=== PATIENT | female | born 1995 | race Caucasian/White ===

== ENCOUNTER 2017-12-24 22:30 | Emergency (ER) | payer BC, SELFPAY ==
[2017-12-24 22:31] VITALS: BP 145/79; PULSE 104; RESP 15; TEMP 36.7; BMI 40.6
--- NOTE | 2017-12-24 22:57 | ED.VIS.GEN ---
History of Present Illness Chief Complaint: General Illness Informant: Patient Onset: Days - 2 Context: Gradual Onset Timing: Continuous Quality: n/v/d, headache Location: bifrontal headache w/ radiation into base of head occipital region Current Severity: Mild Maximum Severity: Mild Worsened by: light/sound Relieved by: nothing despite trying tylenol several times today Associated Symptoms: 25 wks. no abd pain, vag d/c or leaking. Narrative: No fevers. Started with vomiting and diarrhea, really lightheaded and malaised on occasion. No syncope. Is feeling the baby move. Her mid chest is a little sore, that started after vomiting and is worse when she does vomit. States she has been having a little bit of a headache that started later as well, and feels like it is going into a migraine, the symptoms and location noted above are typical of her migraine headaches. Prior similar symptoms: Yes - Past Medical History (1) Mild intermittent asthma Status: Chronic Past Medical History - Allergies and Home Meds Allergies/Adverse Reactions: Allergies No Known Allergies Allergy (Verified 12/24/17 22:35) Home Medications: Home Medications Medication Instructions Recorded Metoclopramide [Reglan] 10 mg PO Q6H PRN #15 tab 12/24/17 Multivitamin Tablet 12/24/17 Primary Care Physician: Norma Logan MD [CONSULTING TELERADIOLOGY] - Surgical History: myringotomy Smoking Status: Current every day smoker Drugs: None Review of Systems All systems negative except as indicated General: Reports: Malaise Eyes: Denies: Diplopia ENT: Reports: - - ears ringing off and on. Denies: Bilateral ear pain, Rhinorrhea, Sore throat Cardiovascular: Reports: Chest pain - worse w/ movement and vomiting Respiratory: Denies: Dyspnea, Cough Gastrointestinal: Reports: Nausea, Vomiting, Diarrhea. Denies: Abdominal pain, Melena, Hematochezia Genitourinary: Reports: Frequency - since . Denies: Dysuria Musculoskeletal: Reports: Extremity Pain - R hip/groin x 1-2 weeks -- sore. Denies: Myalgias, Neck pain, Back pain Skin: Denies: Rash Neurological: Reports: Headache. Denies: Weakness, Numbness Physical Exam Vital Signs/Narrative: Vital Signs Temp Pulse Resp BP 12/24/17 22:31 98.0 F 104 H 15 145/79 H Inital Vital Signs reviewed: Yes General: Well nourished, Well developed, Obese Head: Normocephalic, Atraumatic Eyes: Perrl, EOMI ENT: Moist mucous membranes, No rhinorrhea, TM's clear. Negative for: Nasal congestion, Sinus tenderness Neck: Supple, Nontender, No lymphadenopathy Cardiovascular: Regular rate, Regular rhythm, No murmurs, Tachycardia - mild Respiratory: No distress, CTA bilaterally, Chest nontender Abdomen: Soft, Nontender, Nondistended, Normal bowel sounds Back: Nontender, Normal Inspection Extremities: Nontender, No edema, - - no right inguinal LAD or tenderness to palp. painless hip joint PROM. Skin: Normal color, No rash Neurological: Alert, Oriented x3, Cranial nerves II-XII grossly intact, Normal Strength, Normal Sensation, Normal Gait Psychological: Normal affect Diagnostic/Tx/Re-eval - Medical Decision Making heart tones measured at 144, well within normal limits. She was treated with a liter of IV fluids, Reglan 10 mg. On reevaluation, she states she feels much better, I cannot remember the last time I did not feel nauseated. She is comfortable driving home, she has a short distance to go, she is keenly alert and able to ambulate without difficulty. I suspect this is a viral syndrome. Will prescribe her some Reglan to use as needed, which is class B in . Also, she is in agreement that her right hip pain is likely related to her and stretching of her uterus. Advised to use measures of supportive care for that including Tylenol as needed. ED Disposition - Plan for ED Patient: Disposition: Home or Assisted Living Chief Complaint: General Illness Diagnosis: Viral gastroenteritis, related hip pain in second trimester, antepartum, Migraine Instructions: ED Headache Migraine, ED Gastroenteritis Viral Prescriptions: Metoclopramide [Reglan] 10 mg PO Q6H PRN #15 tab PRN Reason: Nausea Referrals: Norma Logan MD [CONSULTING TELERADIOLOGY] - 3-5 Days if not improving
[2017-12-24] MEDS: 0.9% Normal Saline 1,000 ML 999 ML IV (23:06)
[2017-12-24] MEDS: Metoclopramide 10 MG/2 ML Vial IV (23:07)
[2017-12-25 01:05] VITALS: BP 117/91; PULSE 85; RESP 17; O2SAT 97
--- NOTE | 2017-12-25 01:05 | ED.RN ---
IV DC'ED, CATHETER INTACT, SMALL GAUZE DRESSING PLACED. DISCHARGE INSTRUCTIONS GIVEN TO AND REVIEWED WITH PATIENT, PATIENT DENIES QUESTIONS OR CONCERNS AND VOICES UNDERSTANDING OF DISCHARGE INSTRUCTIONS. PT AMBULATES OUT OF ROOM WITHOUT DIFFICULTY.
== END 2017-12-25 01:05 | disposition home or self-care (01) ==
PROVIDERS: Emergency Provider Emergency Medicine
DX: O26.893 Other specified pregnancy related conditions, third trimester (principal); A08.4 Viral intestinal infection, unspecified; G43.909 Migraine, unspecified, not intractable, without status migrainosus; O99.333 Smoking (tobacco) complicating pregnancy, third trimester; Z3A.25 25 weeks gestation of pregnancy
CPT/HCPCS: 99284

== ENCOUNTER 2018-03-10 13:05 | Outpatient (CLI) | payer BC, SELFPAY ==
[2018-03-10 13:48] VITALS: BMI 42.7
[2018-03-10 13:58] LABS: ROM Internal Control Test YES-OK TO RESULT pt. (Internal QC); ROM Patient Test Negative (Negative)
--- NOTE | 2018-03-10 14:21 | OB.TRI.NOTE ---
History of Present Illness Date of Service: 03/10/18 Was patient seen by the physician?: Yes Reason For Visit: R/O SROM Date of Service: 03/10/18 Final JANET: 04/09/18 Final JANET Source: US <20 weeks Gestational age: 35 Weeks and 5 Days History of Present Illness: 22-year-old 4 para 1 female presents at 35-3/7 weeks gestation today complaining of vaginal bleeding at home. Patient states when she went to the bathroom it was bright red blood running down her leg. She denies any regular contractions. She states she has not felt well the last few days. She has had nonspecific headache, malaise like it might just be related symptoms. She denies any fevers or chills. She had some loose stools the last couple of days but not today. She denies any rectal bleeding or diarrhea. Denies any nausea or vomiting. She has some bleeding early in the but nothing in the last couple months. Allergies No Known Allergies Allergy (Verified 12/24/17 22:35) Physical Exam General: Alert, Cooperative, No apparent distress Abdomen: Soft, Non Tender, Gravid, Obese, Appropriate for Gestational Age Extremities:: No edema CAR SALES REPRESENTATIVE: Normal external genitalia - Sterile speculum exam was done. There is physiological white mucus discharge in the vault. Cervix is closed. There is no blood in the vaginal vault or vaginal area. Estimated gestational size: Appropriate for gestational size Presentation: Unable to assess NST - FHR Rate Baby A Baseline: 130 bpm Variability:: Moderate, Marked Decelerations:: None NST Reactive:: Yes, Appropriate for gestational age FHR Category:: Category I Uterine Activity:: irritability Impression/Plan 22-year-old 4 para 1 at 35-3/7 weeks gestation with plain vaginal bleeding. High , maternal obesity, history of previous section. There is no evidence of vaginal bleeding on exam. No evidence of labor. Her ROM plus test was negative for rupture of membranes. Plan is for her to follow-up in the office as scheduled or as needed.
== END 2018-03-10 14:10 | disposition home or self-care (01) ==
LOC: WPOUT 13:22 → WP 13:23
PROVIDERS: Visit Provider Obstetrics & Gynecology
DX: O46.93 Antepartum hemorrhage, unspecified, third trimester (principal); O99.213 Obesity complicating pregnancy, third trimester; E66.9 Obesity, unspecified; O34.219 Maternal care for unspecified type scar from previous cesarean delivery; Z3A.35 35 weeks gestation of pregnancy
CPT/HCPCS: 59025; 59050; 84112; 99218; G0378

== ENCOUNTER 2018-04-04 05:00 | Inpatient (IN) | payer BC, SELFPAY ==
[2018-04-04] VITALS (19 sets, daily range): BP systolic 95–142; BP diastolic 6–91; PULSE 88–108; RESP 2–20; TEMP 35.6–36.8; O2SAT 95–100; BMI 39.9
[2018-04-04] MEDS: Lactated Ringers 1,000 ML 150 ML IV (05:40)
[2018-04-04 06:21] LABS: Red Blood Count 3.82 M/mm3 (4.2-5.4); White Blood Count 13.8 K/mm3 (4.4-11.0)
[2018-04-04 06:22] LABS: Absolute Lymphocyte Count 4.13 X10^3/ul (0.83-4.51); Absolute Neutrophil Count 8.3 X10^3/uL (2.0-7.7); Basophil# 0.02 X10^3/uL; Basophil% 0.1 % (0-1); Eosinophil# 0.19 X10^3/uL; Eosinophils% 1.4 % (0-5); Hematocrit 35.6 % (37-47); Hemoglobin 12.2 g/dl (12.0-15.0); Lymphocyte # 4.13 X10^3/ul (4.0); Lymphocyte % 29.9 % (19-41); Mean Corp Hgb Conc 34.3 g/gl (32-36); Mean Corpuscular Hgb 31.9 pg (27.0-32.0); Mean Corpuscular Volume 93.2 fL (81-99); Mean Platelet Vol. 10.2 fl (6.2-12.0); Monocyte# 1.12 X10^3/uL; Monocyte% 8.1 % (0-10); Neutrophil % 60.1 % (47-70); POSITIVE COUNT NO; POSITIVE DIFFERENTIAL NO; POSITIVE MORPHOLOGY NO; Platelet Count 333 K/mm3 (150-450); RBC Distribution Width CV 13.1 % (11.6-14.6); RBC Distribution Width SD 42.9 fl (35.1-43.9)
[2018-04-04] MEDS: Lactated Ringers 1,000 ML 999 ML IV (06:44)
[2018-04-04] MEDS: Sodium Citrate/Citric Acid 30 ML UDC PO (07:28)
[2018-04-04] MEDS: Ondansetron 4 MG/2 ML Vial IV (08:10)
[2018-04-04] MEDS: Oxytocin 30 units/NS 500 ml 30 UNITS/500 ML IV.SOLN 167 UNITS IV (08:30)
--- NOTE | 2018-04-04 08:42 | PCM.OB.CSR ---
Delivery Classification: Scheduled Final JANET Source: US <20 weeks Gestational age: 39 Indications for : Repeat Elective Description of Procedure: Surgeon: Dr. Sonya Baldwin Marble Polisher Hand: CHAVA Hayward Procedure performed: Repeat Low transverse section Anesthesia: Spinal Preoperative diagnosis: Term gestation 39weeks gestation for an elective repeat section, Postoperative Diagnosis: same- live male infant Findings: Live male infant born without complication. Methylene blue back filled into bladder- 280cc NS to ensure no bladder injury due to bladder adhesions and excess fluid draining after closure of uterus- no defect in bladder appreciated- smith draining blue tinged urine- and clear prior to that time. EBL: 800 cc Implantable devices: None Operative note: After informed consent was obtained the patient was taken to the operating room she was given spinal anesthesia. He was placed in the supine position. She was then prepped and draped in normal sterile fashion. Once spinal anesthesia was found to be adequate skin incision was made with a scalpel in a Pfannenstiel fashion. It was carried down to the underlying layer of the fascia. Fascia was then incised midline with scapel and extended laterally using curved brito. 2 straight Macon's were placed in the superior aspect of the fascial edge and the rectus muscles were dissected off sharply Attention was then turned to the inferior aspect where again the fascial edge was grasped with 2 straight Darci clamps tented up and the rectus muscle dissected off sharplyl. At this time the rectus muscles were grasped in the midline using 2 Allis clamps and scalpel was used to separate the rectus muscles. Using blunt force the peritoneum was then entered. bladder adhesions noted- taken down with bovie and metzenbaum scissor. At this time the vesicouterine peritoneum was identified. Metzenbaum scissors were used to create a bladder flap and then taken down digitally. Uterine incision was made in a low transverse fashion with the scalpel and then entered bluntly. Gentle opposing traction was placed to extend the uterine incision. The membranes were ruptured large amount amniotic fluid clear. Infant's head was then brought to the uterine incision was delivered atraumatically followed by the rest infant's body. At this time delayed cord clamping was performed mouth nose were suctioned. Infant was then handed to the waiting nursery team. The placenta was then removed with gentle traction. The uterus was removed from the intra-abdominal cavity is wrapped in a moist lap. He was cleared of all clots and debris using a moist lap. Ring clamps were placed on the uterine angles. #1 Vicryl suture was used in a running locked fashion, excellent hemostasis achieved. At this time then the uterus was placed back into abdominal cavity uterine incision was evaluated and noted to be of good hemostasis. gutters were cleared of all clots. Great hemostasis was appreciated at this time the uterine incision was again evaluated good hemostasis was appreciated. There was a large of amount of fluid noted- bladder was draining clear but due to adhesions decision made to back fill the bladder with NS and Methylene blue- bladder evaluated- no defect noted. The peritoneum was grasped with Kellys. Peritoneum was reapproximated using #2 Vicryl suture in a running fashion. The fascia was then reapproximated using #1 PDS in a running fashion. Subcutaneous layer was evaluated and Bovie was used for any small oozing that was noted per #2-0 plain gut suture was then used to reapproximate the subcutaneous layer 4-0 Vicryl on a Timur needle was used to reapproximate the skin in a subcutaneous fashion. Dry sterile dressing was applied. Instrument lap needle count were correct ?2. Anticipated normal postoperative course for this patient. Amniotic Membrane Rupture Type: Spontaneous Amniotic Fluid Description: Clear Placenta Disposition: [facility] Drain: Smith to straight drain Cord Entanglement: None Cord Vessel Description: 3 Vessels Esitmated Blood Loss (ml): 800 Infant Gender: Male (1 minute): 9 (5 minute): 9 Delayed cord clamping: Yes Pre-op Antibiotic Given: Ancef 2 grams IV x1 Pt instructed on risks of surgery: Bleeding, Anesthesia Risks, Infection, Injury to surrounding structure(s) including bowel and bladder Complications: None - Admit VTE Documentation VTE Present on Admission: Yes VTE Mechan Device Prophylaxis: SCD's VTE Pharm Prophylaxis ordered?: Yes
[2018-04-04] MEDS: Lactated Ringers 1,000 ML 100 ML IV ×3 (08:55→22:30)
[2018-04-04] MEDS: Ketorolac 30 MG/ML Syringe IV ×2 (14:35→21:13)
[2018-04-05] VITALS (7 sets, daily range): BP systolic 108–123; BP diastolic 51–63; PULSE 87–101; RESP 16–18; TEMP 36.2–36.5; O2SAT 95–99
[2018-04-05] MEDS: Ketorolac 30 MG/ML Syringe IV ×4 (03:18→21:25)
[2018-04-05 05:29] LABS: Hematocrit 30.2 % (37-47); Mean Corp Hgb Conc 33.1 g/gl (32-36); Mean Corpuscular Hgb 31.5 pg (27.0-32.0); Mean Corpuscular Volume 95.3 fL (81-99); Mean Platelet Vol. 9.8 fl (6.2-12.0); Platelet Count 293 K/mm3 (150-450); RBC Distribution Width SD 43.4 fl (35.1-43.9); Red Blood Count 3.17 M/mm3 (4.2-5.4); White Blood Count 13.8 K/mm3 (4.4-11.0)
[2018-04-05 05:30] LABS: Scan Indicated on CBC? Y/N NO
[2018-04-05] MEDS: Enoxaparin 40 MG/0.4 ML Syringe SC (05:55)
--- NOTE | 2018-04-05 08:07 | PCM.DCCSEC ---
Discharge Diet: No Restrictions Discharge Activity: Return to Normal Activity, May Not Drive - for 2 weeks, May not drive while taking narcotic pain medications., May Shower, May Take a Tub Bath - in 7 days. May resume sexual activity in: 4-6 weeks Lifting Restrictions: 20 pounds Additional Activity Instructions:: Nothing in the vagina for 4-6 weeks. You may return to work/school in 6 weeks. Call your doctor if your incision/area has: Continuous Slow Oozing, Sudden Increased Bleeding, Increased Pain/ Swelling, Increased Redness, Foul Smelling Discharge Call your doctor if you observe: Fever of 101 or Higher, Using more than one pad per hour - for 2 hours Suture Line Care: Avoid Pulling/Pushing, Avoid Pinching/Bending Cleanse incision/area with: Keep Dressing Clean & Dry Additional Instructions: If you experience any of the following, contact your healthcare provider. Bleeding that soaks a pad every hour for 2 hours Fever 100.4 or higher Unrelieved incision or abdominal pain Swelling, redness, discharge or bleeding from your incision or episiotomy site Your incision begins to separate Problems urinating (including inability to urinate or burning while urinating). Visual changes Severe headache Flu-like symptoms Pain or redness in one of both of your breasts Pain, warmth, tenderness or swelling in your legs, especially the calf area Frequent nausea and vomiting Symptoms of depression or anxiety If you experience any of the following, call 911 or go to the nearest Emergency Room. Chest pain Problems breathing Seizure activity Partial or complete paralysis of a body part, slurred speech, weakness or drooping of the face, or a sudden inability to walk or hold your balance Allergies/Adverse Reactions: Allergies No Known Allergies Allergy (Verified 04/04/18 05:17) Medications to take at Discharge Multivitamin Tablet 1 tab PO DAILY 12/24/17 Acetaminophen [Tylenol Extra Strength] 500 mg PO Q6H PRN PRN 03/10/18 Ibuprofen [Motrin] 800 mg PO Q8H PRN PRN #30 tab 04/05/18 Oxycodone HCl/Acetaminophen [Percocet 5/325] 1 tablet PO Q6H PRN PRN 7 Days #20 tablet 04/05/18 Senna/Docusate Sodium [Senokot-S] 1 - 2 tab PO DAILY PRN #20 tab 04/05/18 Sertraline HCl [Zoloft] 50 mg PO DAILY #30 tab 04/05/18 SimETHICONE [Mylicon] 80 mg PO PCHS PRN #30 tab 04/05/18 The following prescriptions were given: Oxycodone HCl/Acetaminophen [Percocet 5/325] 1 tablet PO Q6H PRN PRN 7 Days #20 tablet PRN Reason: Pain Ibuprofen [Motrin] 800 mg PO Q8H PRN PRN #30 tab PRN Reason: Pain Senna/Docusate Sodium [Senokot-S] 1 - 2 tab PO DAILY PRN #20 tab PRN Reason: Constipation Sertraline HCl [Zoloft] 50 mg PO DAILY #30 tab SimETHICONE [Mylicon] 80 mg PO PCHS PRN #30 tab PRN Reason: Indigestion/stomach pain Follow-Up: Call to make an appointment with your doctor for an incision check in 1-2 weeks. You will also need a 6 week post- follow up appointment. Test results from this visit will be discussed in further detail at your follow-up appointment, if applicable. Please Follow Up With: Sonya Baldwin MD - Call to make an appointment for an incision check in 1-2 [phone] When: You will need a post- check in 6 weeks. Primary Care Physician: Care Physician,No Primary [Primary Care Provider] -
--- NOTE | 2018-04-05 08:08 | PCM.PN.OB ---
Subjective: pt seen at bedside, doing well. pt reports good pain control. lochia mild. pt reports passing flatus, denies N/V. pt requesting restart of zoloft- emotional this morning. Smith draining. - Physical Exam General: Alert, Oriented x3 Abdomen: Soft, Non-Distended, - - fundus firm. incison site dry and intact Extremities: No Calf Tenderness Vital Signs Temp Pulse Resp BP Pulse Ox 97.6 F L 98 16 108/51 L 99 04/05/18 03:20 04/05/18 06:00 04/05/18 06:00 04/05/18 03:20 04/05/18 06:00 Oxygen Delivery Method Room Air Weight: 115.6 kg Body Mass Index (BMI) 39.9 Intake and Output for Last 24 Hours 04/03/18 04/04/18 04/05/18 23:59 23:59 23:59 Intake Total 2880 / 2880 2007 / 2007 Output Total 2170 / 2170 1700 / 1700 Balance 710 / 710 308 / 308 Laboratory Tests Past 24 Hrs 04/04/18 04/05/18 05:40 05:15 WBC 13.8 H RBC 3.17 L Hgb 10.0 L Hct 30.2 L MCV 95.3 MCH 31.5 MCHC 33.1 RDW 13.0 RDW Differential 43.4 Plt Count 293 MPV 9.8 Blood Type A POSITIVE Antibody Screen NEGATIVE Medical Necessity - Tobacco Use Smoking Status: Heavy Smoker (>10/day) Assessment/Plan POD#1, doing well routine care dc smith ambulation today pain mgmt
[2018-04-05] MEDS: 0.9% Saline Lock 10 ML Syringe IV ×3 (08:46→21:25)
--- NOTE | 2018-04-05 09:58 | NURSING ---
agree with a.m. assessment, alex bullock
[2018-04-05] MEDS: Ibuprofen 600 MG Tablet PO (13:46)
[2018-04-05] MEDS: Senna/Docusate Sodium 1 Tablet PO (16:59)
[2018-04-05] MEDS: oxyCODONE 5 MG Tablet PO (20:02)
[2018-04-05] MEDS: Sertraline 50 MG Tablet PO (21:25)
[2018-04-06 02:10] VITALS: BP 137/87; PULSE 95; RESP 16; TEMP 36.5; O2SAT 95
[2018-04-06] MEDS: oxyCODONE 5 MG Tablet PO ×2 (02:10→13:52)
[2018-04-06] MEDS: Ketorolac 30 MG/ML Syringe IV (03:27)
[2018-04-06] MEDS: 0.9% Saline Lock 10 ML Syringe IV (03:27)
--- NOTE | 2018-04-06 05:45 | PCM.PN.OB ---
Subjective: pt seen at bedside, reports good pain control. lochia mild. passing flatus. - Physical Exam General: Alert, Oriented x3 Abdomen: Soft, Non Tender, - - fundus firm Extremities: No Calf Tenderness Vital Signs Temp Pulse Resp BP Pulse Ox 97.7 F L 95 16 137/87 H 95 04/06/18 02:10 04/06/18 02:10 04/06/18 02:10 04/06/18 02:10 04/06/18 02:10 Oxygen Delivery Method Room Air Weight: 115.6 kg Body Mass Index (BMI) 39.9 Intake and Output for Last 24 Hours 04/04/18 04/05/18 04/06/18 23:59 23:59 23:59 Intake Total 2880 / 2880 2007 Output Total 2170 / 2170 3650 / 3650 Balance 710 / 710 -1642 / -1642 Medical Necessity - Tobacco Use Smoking Status: Heavy Smoker (>10/day) Assessment/Plan POD#2 doing well routine care pain mgmt ambulation
[2018-04-06] MEDS: Enoxaparin 40 MG/0.4 ML Syringe SC (06:24)
--- NOTE | 2018-04-06 07:22 | PCM.DC.BLA ---
Discharge Summary Date of Admission: 04/04/18 Date of Discharge: 04/06/18 Summary: pt underwent scheduled elective repeat c/s without complication. Pt had normal post op course and was discharged home on POD#2.
[2018-04-06 08:53] VITALS: BP 144/86; PULSE 96; RESP 16; TEMP 37.2; O2SAT 95
[2018-04-06] MEDS: Ibuprofen 600 MG Tablet PO (09:34)
[2018-04-06 13:58] VITALS: BP 131/77; PULSE 87; RESP 16; TEMP 36.6; O2SAT 97
== END 2018-04-06 14:30 | disposition home or self-care (01) | DRG 766 ==
PROVIDERS: Admitting Provider Obstetrics & Gynecology; Visit Provider Obstetrics & Gynecology
PROC: 10D00Z1 Extraction of Products of Conception, Low, Open Approach (ICD-10-PCS; CPT 59514; principal; 2018-04-04 07:15)
DX: O34.211 Maternal care for low transverse scar from previous cesarean delivery (principal); O99.334 Smoking (tobacco) complicating childbirth; F17.210 Nicotine dependence, cigarettes, uncomplicated; O99.344 Other mental disorders complicating childbirth; F32.9 Major depressive disorder, single episode, unspecified; Z37.0 Single live birth; Z3A.39 39 weeks gestation of pregnancy
CPT/HCPCS: 85025; 85027; 86850; 86900; 99218; J7120; A4216; G0378; J2405; Q9968

== ENCOUNTER 2018-05-17 16:55 | Emergency (ER) | payer BC, SELFPAY ==
[2018-05-17 16:56] VITALS: BP 151/71; PULSE 97; RESP 18; TEMP 36.8; O2SAT 98; BMI 36.0
[2018-05-17 17:08] VITALS: BP 145/74; PULSE 86; RESP 16; O2SAT 100
--- NOTE | 2018-05-17 17:20 | ED.DCSUM_ITS ---
- ER Visit Summary Date of Service: 05/17/18 Chief Complaint: [Vaginal bleeding] History of Present Illness: The patient is a 22 F [presents to the emergency department complaint of vaginal bleeding that started around 3 AM. Patient states that she is passing clots and is going through about a pad and a tampon every 45 minutes. Patient states that she is 6 weeks . Patient complains of feeling lightheaded and dizzy. Patient complains of nausea. Patient complains of lower abdominal pain. Patient states that she took an oxycodone this morning that she had leftover but it really did not seem to help her pain. Patient denies urinary symptoms.] Physical Examination: [HEENT-PERRLA, EOMI. Cranial nerves II through XII grossly intact. TMs clear. Mucous membranes moist. No adenopathy. Cardiovascular-regular rate and rhythm without murmur or ectopy Lungs-clear to auscultation, chest wall stable without crepitus or subcu emphysema Abdomen-normoactive bowel sounds, soft. Patient has tenderness to the suprapubic region. There is no rebound, rigidity, or perineal signs. exam-normal external genitalia. On speculum exam there is a small amount of blood in the vaginal vault although patient did have a tampon in prior to exam. Once the blood was cleared from the vaginal vault it was noted that she just had a small amount of blood trickling from the cervical office. The office is closed. No evidence of trauma to the vaginal vault or cervix noted. Extremities-intact ?4, normal range of motion, normal pulses, atraumatic] Test Results: [CBC with differential obtained showed a white count of 8.3, hemoglobin 13.8, hematocrit 42, platelets 356. Orthostatic vital signs were negative. HCG was negative.] Emergency Department Course and Treatment: [Patient received normal saline was medicated with morphine and Zofran for pain.] Treatment Plan: [Patient case was discussed with Dr. Patricia Guy who is on-call for Dr. Logan who asked the patient keep her appointment tomorrow with her HUMAN RESOURCES HR REPRESENTATIVE.] Disposition: [Discharged home in stable condition] Impression: [Vaginal bleeding] This note was generated with [employer] dictation software. It may contain incorrect words, spelling, and punctuation that were not noted in review of the chart prior to signing ED Disposition - Plan for ED Patient: Chief Complaint: Vag Bleeding Referrals: Care Physician,No Primary [Primary Care Provider] -
[2018-05-17 17:51] LABS: Absolute Lymphocyte Count 2.67 X10^3/ul (0.83-4.51); Absolute Neutrophil Count 4.9 X10^3/uL (2.0-7.7); Basophil# 0.02 X10^3/uL; Basophil% 0.2 % (0-1); Eosinophil# 0.22 X10^3/uL; Eosinophils% 2.6 % (0-5); Hematocrit 41.6 % (37-47); Hemoglobin 13.8 g/dl (12.0-15.0); Lymphocyte # 2.67 X10^3/ul (4.0); Lymphocyte % 32.1 % (19-41); Mean Corp Hgb Conc 33.2 g/gl (32-36); Mean Corpuscular Hgb 30.6 pg (27.0-32.0); Mean Corpuscular Volume 92.2 fL (81-99); Mean Platelet Vol. 10.7 fl (6.2-12.0); Monocyte# 0.46 X10^3/uL; Monocyte% 5.5 % (0-10); Neutrophil # 4.93 X10^3/uL (2.7-7.7); Neutrophil % 59.5 % (47-70); Platelet Count 356 K/mm3 (150-450); RBC Distribution Width CV 12.9 % (11.6-14.6); RBC Distribution Width SD 42.3 fl (35.1-43.9); Red Blood Count 4.51 M/mm3 (4.2-5.4); White Blood Count 8.3 K/mm3 (4.4-11.0)
[2018-05-17 17:52] LABS: POSITIVE COUNT NO; POSITIVE DIFFERENTIAL NO; POSITIVE MORPHOLOGY NO
[2018-05-17 18:00] VITALS: BP 111/60; BP 113/60; BP 113/62; PULSE 72; PULSE 78; PULSE 97
[2018-05-17] MEDS: 0.9% Normal Saline 1,000 ML 1000 ML IV (18:04)
[2018-05-17 18:18] LABS: Pregnancy, Serum, hCG Quali. NEGATIVE Negative (0-9 Nonpreg)
[2018-05-17] MEDS: Morphine 4 MG/ML Syringe IV (18:54)
[2018-05-17] MEDS: Ondansetron 4 MG/2 ML Vial IV (18:54)
--- NOTE | 2018-05-17 19:47 | ED.RN ---
olga cox ENERGY RISK MANAGEMENT ANALYST in with Dr. Almazan during pelvic exam
--- NOTE | 2018-05-17 19:54 | ED.DEP ---
ED Disposition - Plan for ED Patient: Chief Complaint: Vag Bleeding Instructions: ED Bleed Irregular Vaginal Prescriptions: Hydrocodone Bitart/Apap 5-325 [[place] 5MG-325MG] 1 tab PO Q4H PRN PRN 2 Days #10 tab PRN Reason: Pain Referrals: Care Physician,No Primary [Primary Care Provider] - Sonya Baldwin MD [STAFF PHYSICIAN] - 1 Day
[2018-05-17 20:01] VITALS: BP 107/60; PULSE 60; RESP 16; O2SAT 97
== END 2018-05-17 20:02 | disposition home or self-care (01) ==
LOC: ED 17:16
PROVIDERS: Emergency Provider Emergency Medicine
DX: O72.1 Other immediate postpartum hemorrhage (principal); Z72.0 Tobacco use
CPT/HCPCS: 84703; 85025; 86850; 86900; 96361; 96374; 96375; 99284; J7030; A4216; J2405

== ENCOUNTER 2018-06-04 08:50 | Observation (INO) | payer BC, SELFPAY ==
[2018-06-04] VITALS (10 sets, daily range): BP systolic 103–146; BP diastolic 50–110; PULSE 79–100; RESP 14–18; TEMP 36.3–37.1; O2SAT 95–100; BMI 36.0
--- NOTE | 2018-06-04 09:07 | CT_ITS ---
STUDY: CT ABDOMEN AND PELVIS WITH CONTRAST REASON FOR EXAM: Female, 22 years old. Abdominal pain, nausea and vomiting for 2 days. RADIATION DOSAGE (If Supplied By Facility): CTDIvol = ( 14.68 ) mGy, DLP = ( 1302.53 ) mGycm TECHNIQUE: Transaxial images were obtained from the dome of the diaphragm to the symphysis pubis without oral contrast. 100CC ml of Isovue 300 contrast was administered. Sagittal and coronal images were reconstructed. Individualized dose optimization techniques were used for this CT. COMPARISON: 07/05/2017. FINDINGS: The visualized lung bases are unremarkable. The visualized portions of the heart are within normal limits. The liver is borderline in size. No focal lesion is seen. Normal gallbladder and extrahepatic biliary system. Normal spleen. Normal pancreas. Normal bilateral adrenal glands. Normal right kidney. Normal left kidney. Normal visualized stomach. The small bowel loops are normal in caliber. There is no evidence of bowel obstruction. There is mild fecal retention. The descending colon is suboptimally distended. There is a tubular thickened structure in the right lower quadrant and upper pelvic lesion with calcification in its proximal aspect which could represent appendicolith. The findings are suspicious for acute appendicitis (Axial images 86-1 01 series 2 and coronal images 58-70 series 601). Normal abdominal aorta. Normal inferior vena cava. Normal retroperitoneum. The urinary bladder is not distended. There is an IUD in place. There is moderate amount of free fluid in the pelvis. There may be a cyst in the left adnexal region measuring about 2.2 cm. There is a very small umbilical hernia containing fat. Normal osseous structures. CT/Abdomen/Pelvis W IV Cont ONLY IMPRESSION: 1. Thickened tubular structure in the right side of the upper pelvis with probable appendicolith as described above suspicious for acute appendicitis. 2. Moderate amount of free fluid in the pelvis. 3. Probable small left adnexal cyst. 4. IUD in place. N.B. : The above information has been verbally conveyed by Chun Rudd MD to Dr. El MD, on 06/04/2018 11:30:43 (ET). Electronically Signed: Chun Rudd MD at 11:23 EDT Tel , Service support ,
--- NOTE | 2018-06-04 09:09 | ED.VIS.GEN ---
History of Present Illness Chief Complaint: Abd Pain Informant: Patient Onset: Yesterday Context: Gradual Onset Timing: Continuous Quality: Pain Location: periumbilical initially, this AM RLQ Current Severity: Severe Maximum Severity: Severe Worsened by: bumps in road en route to ER Relieved by: nothing Associated Symptoms: n/v, dec appetite Narrative: Patient states abdominal pain started last night, followed by nausea, vomiting, now right lower quadrant discomfort. Never had her appendix out. She has had 2 prior C-sections, the last one was about 2 months ago, and she had a left ovarian surgery for a cyst. Normal bowel movement yesterday, normal urination, no radiation into her back, which always hurts. - Past Medical History (1) Mild intermittent asthma Status: Chronic Past Medical History - Allergies and Home Meds Allergies/Adverse Reactions: Allergies No Known Allergies Allergy (Verified 06/04/18 08:54) Primary Care Physician: Care Physician,No Primary [Primary Care Provider] - Surgical History: myringotomy, - - Left ovarian cyst. x2. Smoking Status: Current every day smoker Drugs: None Review of Systems General: Reports: Malaise. Denies: Chills, Fever, Sweats Cardiovascular: Denies: Chest pain, Palpitations Respiratory: Denies: Dyspnea, Cough, Dyspnea on exertion Gastrointestinal: Reports: Abdominal pain, Nausea, Vomiting. Denies: Diarrhea, Melena, Hematochezia Genitourinary: Denies: Dysuria, Hematuria, Frequency Musculoskeletal: Reports: Back pain - chronic. Denies: Neck pain, Swelling, Extremity Pain Skin: Denies: Rash Neurological: Denies: Headache, Weakness, Numbness Psych: Reports: Anxiety. Denies: Depression Allergy: Denies: Swelling of the mouth, Swelling of the tongue Physical Exam Vital Signs/Narrative: Vital Signs Temp Pulse Resp BP Pulse Ox 06/04/18 08:51 98 F 100 18 125/76 H 100 Inital Vital Signs reviewed: Yes General: Well nourished, Well developed, - - tearful, in pain Head: Normocephalic, Atraumatic Eyes: Perrl, EOMI ENT: Moist mucous membranes, No rhinorrhea Neck: Supple, Nontender Cardiovascular: Regular rate, Regular rhythm, No murmurs Respiratory: No distress, CTA bilaterally, Chest nontender Abdomen: Soft, Nondistended, Tender - diffuse RLQ, including McBurney's pt, Guarding - vol, Hyperactive bowel sounds, Obturator sign - unable to complete due to pain -- flexing thigh intensifies pain. not able to perform psoas due to pain., Rovsig's sign. Negative for: Rebound tenderness, Hepatomegaly, Cohn's sign Back: Normal Inspection. Negative for: CVA tenderness Extremities: Nontender, No edema Skin: Normal color, No rash Neurological: Alert, Oriented x3, Cranial nerves II-XII grossly intact, Normal Strength, Normal Sensation, Normal Gait Psychological: Tearful Diagnostic/Tx/Re-eval Impressions Abdomen/Pelvis CT 06/04/18 09:07 IMPRESSION: 1. Thickened tubular structure in the right side of the upper pelvis with probable appendicolith as described above suspicious for acute appendicitis. 2. Moderate amount of free fluid in the pelvis. 3. Probable small left adnexal cyst. 4. IUD [address]. N.B. : The above information has been verbally conveyed by Chun Rudd MD to Dr. El MD, on 06/04/2018 11:30:43 (ET). Electronically Signed: Chun Rudd MD at 11:23 EDT Tel , Service support , 06/04/18 09:07 Abdomen/Pelvis W IV Cont ONLY [CT] Stat Laboratory Results 06/04/18 06/04/18 06/04/18 09:20 09:20 09:20 WBC 16.5 H RBC 4.96 Hgb 15.3 H Hct 45.5 MCV 91.7 MCH 30.8 MCHC 33.6 RDW 13.2 RDW Differential 43.5 Plt Count 354 MPV 10.3 Immature Gran % (Auto) 0.100 Neut % (Auto) 86.1 H Lymph % (Auto) 8.6 L [place] % (Auto) 4.4 Eos % (Auto) 0.7 Baso % (Auto) 0.1 Absolute Neuts (auto) 14.2 H Absolute Lymphs (auto) 1.42 Total Counted Not Reportable Sodium 138 Potassium 3.4 L Chloride 105 Carbon Dioxide 26.0 Anion Gap 7 BUN 8 Creatinine 0.85 Estim Creat Clear Calc 95.54 Est GFR (MDRD) Af Amer 105 Est GFR (MDRD) Non-Af 87 BUN/Creatinine Ratio 9.4 L Glucose 103 Calcium 8.9 Serum , Qual NEGATIVE - Medical Decision Making Initial eval was suspicious for appendicitis. Patient does not have surgical abdomen, is very soft, therefore workup is ordered along with analgesics, antiemetics, and IV fluids. Patient has leukocytosis of 16.5 with strong leftward shift, and CT with IV contrast performed after negative confirms acute appendicitis without rupture, however very dilated thickened appendix over 1 cm. There is free fluid in the pelvis and no free fluid near the appendix. Discussed with surgery Dr. Price. Juan Alberto ordered. ED Disposition - Plan for ED Patient: Disposition: Acute Care Hospital [facility] Chief Complaint: Abd Pain Diagnosis: Acute appendicitis Referrals: Care Physician,No Primary [Primary Care Provider] -
--- NOTE | 2018-06-04 09:13 | ED.DCSUM_ITS ---
History of Present Illness Chief Complaint: Abd Pain Informant: Patient Onset: Yesterday Context: Gradual Onset Timing: Continuous Quality: Pain Location: periumbilical initially, this AM RLQ Current Severity: Severe Maximum Severity: Severe Worsened by: bumps in road en route to ER Relieved by: nothing Associated Symptoms: n/v, dec appetite Narrative: Patient states abdominal pain started last night, followed by nausea, vomiting, now right lower quadrant discomfort. Never had her appendix out. She has had 2 prior C-sections, the last one was about 2 months ago, and she had a left ovarian surgery for a cyst. Normal bowel movement yesterday, normal urination, no radiation into her back, which always hurts. - Past Medical History (1) Mild intermittent asthma Status: Chronic Past Medical History - Allergies and Home Meds Allergies/Adverse Reactions: Allergies No Known Allergies Allergy (Verified 06/04/18 08:54) Primary Care Physician: Care Physician,No Primary [Primary Care Provider] - Surgical History: myringotomy, - - Left ovarian cyst. x2. Smoking Status: Current every day smoker Drugs: None Review of Systems General: Reports: Malaise. Denies: Chills, Fever, Sweats Cardiovascular: Denies: Chest pain, Palpitations Respiratory: Denies: Dyspnea, Cough, Dyspnea on exertion Gastrointestinal: Reports: Abdominal pain, Nausea, Vomiting. Denies: Diarrhea, Melena, Hematochezia Genitourinary: Denies: Dysuria, Hematuria, Frequency Musculoskeletal: Reports: Back pain - chronic. Denies: Neck pain, Swelling, Extremity Pain Skin: Denies: Rash Neurological: Denies: Headache, Weakness, Numbness Psych: Reports: Anxiety. Denies: Depression Allergy: Denies: Swelling of the mouth, Swelling of the tongue Physical Exam Vital Signs/Narrative: Vital Signs Temp Pulse Resp BP Pulse Ox 06/04/18 08:51 98 F 100 18 125/76 H 100 Inital Vital Signs reviewed: Yes General: Well nourished, Well developed, - - tearful, in pain Head: Normocephalic, Atraumatic Eyes: Perrl, EOMI ENT: Moist mucous membranes, No rhinorrhea Neck: Supple, Nontender Cardiovascular: Regular rate, Regular rhythm, No murmurs Respiratory: No distress, CTA bilaterally, Chest nontender Abdomen: Soft, Nondistended, Tender - diffuse RLQ, including McBurney's pt, Gu arding - vol, Hyperactive bowel sounds, Obturator sign - unable to complete due to pain -- flexing thigh intensifies pain. not able to perform psoas due to pain., Rovsig's sign. Negative for: Rebound tenderness, Hepatomegaly, Cohn's sign Back: Normal Inspection. Negative for: CVA tenderness Extremities: Nontender, No edema Skin: Normal color, No rash Neurological: Alert, Oriented x3, Cranial nerves II-XII grossly intact, Normal Strength, Normal Sensation, Normal Gait Psychological: Tearful Diagnostic/Tx/Re-eval Impressions Abdomen/Pelvis CT 06/04/18 09:07 IMPRESSION: 1. Thickened tubular structure in the right side of the upper pelvis with probable appendicolith as described above suspicious for acute appendicitis. 2. Moderate amount of free fluid in the pelvis. 3. Probable small left adnexal cyst. 4. IUD in place. N.B. : The above information has been verbally conveyed by Chun Rudd MD to Dr. El MD, on 06/04/2018 11:30:43 (ET). Electronically Signed: Chun Rudd MD at 11:23 EDT Tel , Service support , 06/04/18 09:07 Abdomen/Pelvis W IV Cont ONLY [CT] Stat Laboratory Results 06/04/18 06/04/18 06/04/18 09:20 09:20 09:20 WBC 16.5 H RBC 4.96 Hgb 15.3 H Hct 45.5 MCV 91.7 MCH 30.8 MCHC 33.6 RDW 13.2 RDW Differential 43.5 Plt Count 354 MPV 10.3 Immature Gran % (Auto) 0.100 Neut % (Auto) 86.1 H Lymph % (Auto) 8.6 L [place] % (Auto) 4.4 Eos % (Auto) 0.7 Baso % (Auto) 0.1 Absolute Neuts (auto) 14.2 H Absolute Lymphs (auto) 1.42 Total Counted Not Reportable Sodium 138 Potassium 3.4 L Chloride 105 Carbon Dioxide 26.0 Anion Gap 7 BUN 8 Creatinine 0.85 Estim Creat Clear Calc 95.54 Est GFR (MDRD) Af Amer 105 Est GFR (MDRD) Non-Af 87 BUN/Creatinine Ratio 9.4 L Glucose 103 Calcium 8.9 Serum , Qual NEGATIVE - Medical Decision Making Initial eval was suspicious for appendicitis. Patient does not have surgical abdomen, is very soft, therefore workup is ordered along with analgesics, antiemetics, and IV fluids. Patient has leukocytosis of 16.5 with strong leftward shift, and CT with IV contrast performed after negative confirms acute appendicitis without rupture, however very dilated thickened appendix over 1 cm. There is free fluid in the pelvis and no free fluid near the appendix. Discussed with surgery Dr. Price. Juan Alberto ordered. ED Disposition - Plan for ED Patient: Disposition: Acute Care Hospital [facility] Chief Complaint: Abd Pain Diagnosis: Acute appendicitis Referrals: Care Physician,No Primary [Primary Care Provider] -
[2018-06-04] MEDS: 0.9% Normal Saline 1,000 ML 1000 ML IV (09:26)
[2018-06-04] MEDS: Morphine 4 MG/ML Syringe IV ×2 (09:26→11:59)
[2018-06-04] MEDS: Ondansetron 4 MG/2 ML Vial IV (09:27)
[2018-06-04 09:29] LABS: Absolute Lymphocyte Count 1.42 X10^3/ul (0.83-4.51); Absolute Neutrophil Count 14.2 X10^3/uL (2.0-7.7); Basophil# 0.02 X10^3/uL; Basophil% 0.1 % (0-1); Eosinophil# 0.12 X10^3/uL; Eosinophils% 0.7 % (0-5); Hematocrit 45.5 % (37-47); Hemoglobin 15.3 g/dl (12.0-15.0); Lymphocyte # 1.42 X10^3/ul (4.0); Lymphocyte % 8.6 % (19-41); Mean Corp Hgb Conc 33.6 g/gl (32-36); Mean Corpuscular Hgb 30.8 pg (27.0-32.0); Mean Corpuscular Volume 91.7 fL (81-99); Mean Platelet Vol. 10.3 fl (6.2-12.0); Monocyte# 0.73 X10^3/uL; Monocyte% 4.4 % (0-10); Neutrophil # 14.23 X10^3/uL (2.7-7.7); Neutrophil % 86.1 % (47-70); Platelet Count 354 K/mm3 (150-450); RBC Distribution Width CV 13.2 % (11.6-14.6); RBC Distribution Width SD 43.5 fl (35.1-43.9); Red Blood Count 4.96 M/mm3 (4.2-5.4); White Blood Count 16.5 K/mm3 (4.4-11.0)
[2018-06-04 09:30] LABS: POSITIVE COUNT NO; POSITIVE DIFFERENTIAL NO; POSITIVE MORPHOLOGY NO
[2018-06-04 09:43] LABS: Anion Gap 7 (5-15); BUN 8 mg/dL (7-18); BUN/Creat Ratio 9.4 RATIO (10-20); Calcium,Total 8.9 mg/dL (8.5-10.1); Chloride 105 mmol/L (98-107); Creatinine, Serum 0.85 mg/dL (0.55-1.02); EST Glomerular Filtration Rate 87 mL/min (>60); Est Glom Filt Rate - Afr Amer 105 mL/min (>60); Estimated Creatinine Clearance 95.54 ml/min; Glucose 103 mg/dL (74-106); Potassium 3.4 mmol/L (3.5-5.1); Sodium Level 138 mmol/L (136-145)
[2018-06-04 09:50] LABS: Pregnancy, Serum, hCG Quali. NEGATIVE Negative (0-9 Nonpreg)
[2018-06-04 11:34] LABS: Bacteria 0 SEEN /hpf (None Seen); Mucous, Urine 0 SEEN /hpf (<or=2+); White Blood Cells 0 SEEN /hpf (0-5)
[2018-06-04 11:37] LABS: Color, Urine Yellow (Yellow); Glucose, Dipstick Normal (Normal); Ketone-Dipstick Negative (Negative); Leukocyte Esterase-Dipstick 25 /ul (Negative); Nitrite-Dipstick Negative (Negative); Occult Blood-Urine 150 /ul (Negative); Protein-Dipstick 15 mg/dl (Negative); Specific Gravity, Urine 1.005 (1.002-1.030); Urine Bilirubin Dipstick Negative (Negative); Urine Clarity Clear (Clear); Urine Urobilinogen Normal (Normal)
[2018-06-04 11:44] LABS: Red Blood Cells-Urine 0-5 SEEN /hpf (0-5); Squamous Epithelial Cells - UA 0-5 SEEN /hpf (5-10)
--- NOTE | 2018-06-04 11:44 | NURSING ---
DR GOMES PAGED AND RETURNED CALL
--- NOTE | 2018-06-04 11:47 | NURSING ---
MED SURG ACUTE APPENDICITIS [facility]
[2018-06-04] MEDS: Piperacil/Tazobactam 3.375 GM/50 ML ML IV ×2 (12:00→18:45)
--- NOTE | 2018-06-04 12:04 | NURSING ---
SURGEON IN ROOM
--- NOTE | 2018-06-04 12:15 | PCM.HP.STD ---
History of Present Illness Date of Admission: 06/04/18 Chief Complaint: Acute appendicitis The patient is a 22 year old F presented to the ER due to right lower quadrant pain. Patient states pain started initially at 7 PM she was able to take 1 over oxycodone from her previously, patient that her pain may be due to her polycystic ovarian disease. She was able to sleep until about 5 AM where the pain was worse 10/10, positive nausea and vomiting. Patient last ate yesterday at 6 PM and only had a little Sprite this morning, she had a bowel movement yesterday a.m. she usually goes about every other day. In the ER patient had a CT abdomen pelvis that showed a thickened appendix consistent with appendicitis and a leukocytosis of 13. Past Medical History Past Medical History (Chronic Problems): Chronic Problems Mild intermittent asthma (Chronic) Allergies No Known Allergies Allergy (Verified 06/04/18 08:54) Home Medications: Ambulatory Orders Medication Instructions Recorded Sertraline HCl [Zoloft] 50 mg PO DAILY #30 tab 04/05/18 Surgical History: myringotomy, - - Left ovarian cyst. x2. 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 Smoking Status: Current every day smoker Drugs: None - *Family History Maternal History Items: No pertinent history Review of Systems Constitutional: Reports: Anorexia HEENT: Denies: Difficulty Swallowing Cardiovascular: Denies: Chest Pain Respiratory: Denies: Shortness of Breath Gastrointestinal: Reports: Abdominal Pain, Nausea, Vomiting Genitourinary: Denies: Dysuria VTE Information - Inpt Only VTE Present on Admission: Yes VTE Mechan Device Prophylaxis: SCD's VTE Pharm Prophylaxis ordered?: No Reason prophylaxis not ordered:: Treatment Not Indicated - Plan for surgery Patient Problems: Active and Suspected Problems Acute appendicitis (Acute) - Physical Exam General: Alert, Oriented x3, Cooperative, No apparent distress Lungs: Normal air movement Cardiovascular: Regular rate, Regular Rhythm Abdomen: Soft, Non-Distended, Tender - Right lower quadrant and positive Rovsing sign, no guarding or rebound Extremities: No clubbing, No cyanosis, No edema Neurological: Cranial nerves II-XII grossly intact Psych/Mental Status: Normal Affect Vital Signs Temp Pulse Resp BP Pulse Ox 98.3 F 87 16 123/62 H 99 06/04/18 12:08 06/04/18 12:08 06/04/18 12:08 06/04/18 12:08 06/04/18 12:08 Oxygen Delivery Method Room Air Weight: 223 lb 6.4 oz Body Mass Index (BMI) 36.0 Laboratory Tests Past 24 Hrs 06/04/18 06/04/18 06/04/18 09:20 09:20 09:20 WBC 16.5 H RBC 4.96 Hgb 15.3 H Hct 45.5 MCV 91.7 MCH 30.8 MCHC 33.6 RDW 13.2 RDW Differential 43.5 Plt Count 354 MPV 10.3 Immature Gran % (Auto) 0.100 Neut % (Auto) 86.1 H Lymph % (Auto) 8.6 L [place] % (Auto) 4.4 Eos % (Auto) 0.7 Baso % (Auto) 0.1 Absolute Neuts (auto) 14.2 H Absolute Lymphs (auto) 1.42 Total Counted Not Reportable Sodium 138 Potassium 3.4 L Chloride 105 Carbon Dioxide 26.0 Anion Gap 7 BUN 8 Creatinine 0.85 Estim Creat Clear Calc 95.54 Est GFR (MDRD) Af Amer 105 Est GFR (MDRD) Non-Af 87 BUN/Creatinine Ratio 9.4 L Glucose 103 Calcium 8.9 Serum , Qual NEGATIVE Urine Color Urine Clarity Urine pH Ur Specific [place] Urine Protein Urine Glucose (UA) Urine Ketones Urine Occult Blood Urine Nitrite Urine Bilirubin Urine Urobilinogen Ur Leukocyte Esterase Urine RBC Urine WBC Ur Squamous Epith Cells Urine Bacteria Urine Mucus 06/04/18 11:25 WBC RBC Hgb Hct MCV MCH MCHC RDW RDW Differential Plt Count MPV Immature Gran % (Auto) Neut % (Auto) Lymph % (Auto) [place] % (Auto) Eos % (Auto) Baso % (Auto) Absolute Neuts (auto) Absolute Lymphs (auto) Total Counted Sodium Potassium Chloride Carbon Dioxide Anion Gap BUN Creatinine Estim Creat Clear Calc Est GFR (MDRD) Af Amer Est GFR (MDRD) Non-Af BUN/Creatinine Ratio Glucose Calcium Serum , Qual Urine Color Yellow Urine Clarity Clear Urine pH 7.0 Ur Specific [place] 1.005 Urine Protein 15 H Urine Glucose (UA) Normal Urine Ketones Negative Urine Occult Blood 150 H Urine Nitrite Negative Urine Bilirubin Negative Urine Urobilinogen Normal Ur Leukocyte Esterase 25 H Urine RBC 0-5 SEEN Urine WBC 0 SEEN Ur Squamous Epith Cells 0-5 SEEN Urine Bacteria 0 SEEN Urine Mucus 0 SEEN Assessment/Plan All Active Problems Acute appendicitis (Acute) 22-year-old female with acute appendicitis. 1. Discussed procedure laparoscopic appendectomy, possible open, possible bowel resection along with the risk but not limited to bleeding, infection/abscess, injury to another organ (small bowel, colon, etc.), adhesion, hernia at incision sites, and anesthesia. Patient expressed understanding and had no further questions at this time. Jeanie Price M.D. Pager: [phone] [facility] [address] [place] [address], [address] [place] [address] Office: [phone]
--- NOTE | 2018-06-04 12:20 | HP.PCM_ITS ---
History of Present Illness Date of Admission: 06/04/18 Chief Complaint: Acute appendicitis The patient is a 22 year old F presented to the ER due to right lower quadrant pain. Patient states pain started initially at 7 PM she was able to take 1 over oxycodone from her previously, patient that her pain may be due to her polycystic ovarian disease. She was able to sleep until about 5 AM where the pain was worse 10/10, positive nausea and vomiting. Patient last ate yesterday at 6 PM and only had a little Sprite this morning, she had a bowel movement yesterday a.m. she usually goes about every other day. In the ER patient had a CT abdomen pelvis that showed a thickened appendix consistent with appendicitis and a leukocytosis of 13. Past Medical History Past Medical History (Chronic Problems): Chronic Problems Mild intermittent asthma (Chronic) Allergies No Known Allergies Allergy (Verified 06/04/18 08:54) Home Medications: Ambulatory Orders Medication Instructions Recorded Sertraline HCl [Zoloft] 50 mg PO DAILY #30 tab 04/05/18 Surgical History: myringotomy, - - Left ovarian cyst. x2. 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 Smoking Status: Current every day smoker Drugs: None - *Family History Maternal History Items: No pertinent history Review of Systems Constitutional: Reports: Anorexia HEENT: Denies: Difficulty Swallowing Cardiovascular: Denies: Chest Pain Respiratory: Denies: Shortness of Breath Gastrointestinal: Reports: Abdominal Pain, Nausea, Vomiting Genitourinary: Denies: Dysuria VTE Information - Inpt Only VTE Present on Admission: Yes VTE Mechan Device Prophylaxis: SCD's VTE Pharm Prophylaxis ordered?: No Reason prophylaxis not ordered:: Treatment Not Indicated - Plan for surgery Patient Problems: Active and Suspected Problems Acute appendicitis (Acute) - Physical Exam General: Alert, Oriented x3, Cooperative, No apparent distress Lungs: Normal air movement Cardiovascular: Regular rate, Regular Rhythm Abdomen: Soft, Non-Distended, Tender - Right lower quadrant and positive Rovsing sign, no guarding or rebound Extremities: No clubbing, No cyanosis, No edema Neurological: Cranial nerves II-XII grossly intact Psych/Mental Status: Normal Affect Vital Signs Temp Pulse Resp BP Pulse Ox 98.3 F 87 16 123/62 H 99 06/04/18 12:08 06/04/18 12:08 06/04/18 12:08 06/04/18 12:08 06/04/18 12:08 Oxygen Delivery Method Room Air Weight: 223 lb 6.4 oz Body Mass Index (BMI) 36.0 Laboratory Tests Past 24 Hrs 06/04/18 06/04/18 06/04/18 09:20 09:20 09:20 WBC 16.5 H RBC 4.96 Hgb 15.3 H Hct 45.5 MCV 91.7 MCH 30.8 MCHC 33.6 RDW 13.2 RDW Differential 43.5 Plt Count 354 MPV 10.3 Immature Gran % (Auto) 0.100 Neut % (Auto) 86.1 H Lymph % (Auto) 8.6 L [place] % (Auto) 4.4 Eos % (Auto) 0.7 Baso % (Auto) 0.1 Absolute Neuts (auto) 14.2 H Absolute Lymphs (auto) 1.42 Total Counted Not Reportable Sodium 138 Potassium 3.4 L Chloride 105 Carbon Dioxide 26.0 Anion Gap 7 BUN 8 Creatinine 0.85 Estim Creat Clear Calc 95.54 Est GFR (MDRD) Af Amer 105 Est GFR (MDRD) Non-Af 87 BUN/Creatinine Ratio 9.4 L Glucose 103 Calcium 8.9 Serum , Qual NEGATIVE Urine Color Urine Clarity Urine pH Ur Specific [place] Urine Protein Urine Glucose (UA) Urine Ketones Urine Occult Blood Urine Nitrite Urine Bilirubin Urine Urobilinogen Ur Leukocyte Esterase Urine RBC Urine WBC Ur Squamous Epith Cells Urine Bacteria Urine Mucus 06/04/18 11:25 WBC RBC Hgb Hct MCV MCH MCHC RDW RDW Differential Plt Count MPV Immature Gran % (Auto) Neut % (Auto) Lymph % (Auto) [place] % (Auto) Eos % (Auto) Baso % (Auto) Absolute Neuts (auto) Absolute Lymphs (auto) Total Counted Sodium Potassium Chloride Carbon Dioxide Anion Gap BUN Creatinine Estim Creat Clear Calc Est GFR (MDRD) Af Amer Est GFR (MDRD) Non-Af BUN/Creatinine Ratio Glucose Calcium Serum , Qual Urine Color Yellow Urine Clarity Clear Urine pH 7.0 Ur Specific [place] 1.005 Urine Protein 15 H Urine Glucose (UA) Normal Urine Ketones Negative Urine Occult Blood 150 H Urine Nitrite Negative Urine Bilirubin Negative Urine Urobilinogen Normal Ur Leukocyte Esterase 25 H Urine RBC 0-5 SEEN Urine WBC 0 SEEN Ur Squamous Epith Cells 0-5 SEEN Urine Bacteria 0 SEEN Urine Mucus 0 SEEN Assessment/Plan All Active Problems Acute appendicitis (Acute) 22-year-old female with acute appendicitis. 1. Discussed procedure laparoscopic appendectomy, possible open, possible bowel resection along with the risk but not limited to bleeding, infection/abscess, injury to another organ (small bowel, colon, etc.), adhesion, hernia at incision sites, and anesthesia. Patient expressed understanding and had no further questions at this time. Jeanie Price M.D. Pager: [phone] [facility] [address] [place] [address], [address] [place] [address] Office: [phone]
--- NOTE | 2018-06-04 13:00 | APP_PTH ---
PATIENT: JOSH GUALLPA LOC: MS3 U#:[id number] AGE/SX: 22/F ROOM: MS319 RE06/04/[address]: Dr. Jeanie Price MD : 1995 BED: 1 DIS: 06/04/2018 SPEC #: [id number] RECD: 06/06/18 09:34 STATUS: MAKENNA REQ #: [id number] RICHARD: 06/04/18 13:[address]: Jeanie Price DEPT: SURGICAL PATHOLOGY RECD BY: Suraj Wiley ENTERED: 06/06/18 10:20 SP TYPE: APPENDIX OT DR: No Primary Care Phys Tissues: Appendix, NOS Procedures: Surgery Specimen Level III HEADER OPERATION: Laparoscopic appendectomy PRE-OP DIAGNOSIS: Acute appendicitis TISSUE SUBMITTED: Appendix MICROSCOPIC DIAGNOSIS Appendix: Acute appendicitis and periappendicitis. SJ:pako 06/07/18 MICROSCOPIC DESCRIPTION Slides are reviewed. GROSS DESCRIPTION Received is one container labeled with the patient's name and designated appendix. The specimen consists of an appendix measuring 8 cm in length and up to 2 cm in average diameter. The attached periappendiceal adipose tissue measures up to 2 cm in width. The serosa is covered with briseno, purulent exudate. The lumen contains fecal material. No fecalith is identified. Roll Former sections are submitted in one cassette. / SJ:rg 06/06/18 TC:2 [facility]: [id number]
--- NOTE | 2018-06-04 13:48 | PCM.OPRPT ---
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 On workup she was found to have acute appendicitis on CT and a leukocytosis of 13. Patient was started on antibiotics in the ER for acute appendicitis-Zosyn 3.375 g IV x1 Description of the procedure: The patient was placed on operating table in supine position. General anesthesia was induced. A timeout was completed verifying correct patient, procedure, sacrum position and special, prior to beginning procedure. A Sampson catheter and orogastric tube placed. Abdomen was prepped and draped in usual sterile fashion. Incision was made in the natural skin line above the umbilicus with a 15 blade scalpel. The fascia was elevated and incised. Entry into the peritoneum was confirmed visually and no bowel was noted in the vicinity of the incision. The Hannah trocar was placed under direct vision. Abdomen insufflated with a pressure of 12-15 mmHg. Patient tolerated insertion well. The scope was inserted and the abdomen inspected. No injuries from initial trocar placement were noted. Minimal amount of fluid was seen in the right lower quadrant. An direct visualization 2 -5 mm trocars were placed one above the symptoms his pubis and below the hairline and one in the left lower quadrant lateral to the rectus muscle. Care is taken to avoid injury to the bladder and inferior epigastric vessels. The table was placed in Trendelenburg position with the right side elevated. The appendix was grasped with atraumatic grasper and elevated. It was noted to be inflamed. A window was developed in the mesoappendix at the point between the base of the appendix and the cecum. An endoscopic 45 mm linear cutting stapler blue load was then used to divide and staple the base of the appendix. It was reloaded with a vascular load and the mesoappendix similarly divided. The appendix was withdrawn into the Hannah trocar after being placed endoscopically retrieval bag. Appendix was sent to pathology. The appendiceal stump was then irrigated and hemostasis was assured. Fluid was suctioned no other pathology was identified. Secondary trochars were removed under direct visualization. No bleeding was noted trocar sites. The laparoscope withdrawn and the umbilical trocar removed. The abdomen was allowed to collapse. Local anesthesia of 20 mL of 0.5% Marcaine was used at the incision sites. The umbilical trocar site was closed with the [id number] 0 Vicryl suture. The skin was closed up to clear sutures of 4-0 Monocryl and Steri-Strips. The patient was extubated. The patient tolerated the procedure well and was taken to the postanesthesia care unit in satisfactory condition. - Complications none
[2018-06-04] MEDS: Bupiv/Epi 0.5% Mpf 30 ML Vial (13:49)
--- NOTE | 2018-06-04 13:51 | OP.PCM_ITS ---
Report of Operation Date of Procedure: 06/04/18 Pre-Operative Diagnosis: Acute appendicitis Post-Operative Diagnosis: Acute suppurative appendicitis Surgery/Procedure Performed:: Laparoscopic appendectomy animal stunner: Nestor Alas Type of Anesthesia:: General/Supplemental Anesthesiologist: Schuyler Tang Special Medications: Zosyn 3.375 g IV given in the ER for acute appendicitis Specimen's removed: Appendix Estimated Blood Loss (mL): < 10 cc Fluids Replaced: 1.4 L Description of Procedure: Indications: 22-year-old female presented to the ER with new right lower quadrant pain starting 7 PM last night. On workup she was found to have acute appendicitis on CT and a leukocytosis of 13. Patient was started on antibiotics in the ER for acute appendicitis-Zosyn 3.375 g IV x1 Description of the procedure: The patient was placed on operating table in supine position. General anesthesia was induced. A timeout was completed verifying correct patient, procedure, sacrum position and special, prior to beginning procedure. A Sampson catheter and orogastric tube placed. Abdomen was prepped and draped in usual sterile fashion. Incision was made in the natural skin line above the umbilicus with a 15 blade scalpel. The fascia was elevated and incised. Entry into the peritoneum was confirmed visually and no bowel was noted in the vicinity of the incision. The Hannah trocar was placed under direct vision. Abdomen insufflated with a pressure of 12-15 mmHg. Patient tolerated insertion well. The scope was inserted and the abdomen inspected. No injuries from initial trocar placement were noted. Minimal amount of fluid was seen in the right lower quadrant. An direct visualization 2 -5 mm trocars were placed one above the symptoms his pubis and below the hairline and one in the left lower quadrant lateral to the rectus muscle. Care is taken to avoid injury to the bladder and inferior epigastric vessels. The table was placed in Trendelenburg position with the right side elevated. The appendix was grasped with atraumatic grasper and elevated. It was noted to be inflamed. A window was developed in the mesoappendix at the point between the base of the appendix and the cecum. An endoscopic 45 mm linear cutting stapler blue load was then used to divide and staple the base of the appendix. It was reloaded with a vascular load and the mesoappendix similarly divided. The appendix was withdrawn into the Hannah trocar after being placed endo scopically retrieval bag. Appendix was sent to pathology. The appendiceal stump was then irrigated and hemostasis was assured. Fluid was suctioned no other pathology was identified. Secondary trochars were removed under direct visualization. No bleeding was noted trocar sites. The laparoscope withdrawn and the umbilical trocar removed. The abdomen was allowed to collapse. Local anesthesia of 20 mL of 0.5% Marcaine was used at the incision sites. The umbilical trocar site was closed with the [id number] 0 Vicryl suture. The skin was closed up to clear sutures of 4-0 Monocryl and Steri-Strips. The patient was extubated. The patient tolerated the procedure well and was taken to the postanesthesia care unit in satisfactory condition. - Complications none
[2018-06-04] MEDS: Lactated Ringers 1,000 ML 150 ML IV (15:09)
--- NOTE | 2018-06-04 15:31 | PCM.DC.GS ---
Discharge Diet: Light diet - advance as tolerated Discharge Activity: May not drive while taking narcotic pain medications. May shower in (days): 1 Lifting Restrictions: no lifting >20 lbs for 4 weeks Call your doctor if your incision/area has: Continuous Slow Oozing, Sudden Increased Bleeding, Increased Pain/ Swelling, Increased Redness, Foul Smelling Discharge, Swelling at the incision site Call your doctor if you observe: Fever of 101 or Higher Remove Dressing in (days):: 1 - steris will fall off in 7-10 days, if not you can remove Additional Instructions: [place] can cause constipation. ok to take ibuprofen/advil with norco 400-600 mg PO q6h PRN pain. take all pain meds with food. Take stool softener daily with pain meds. if no BM in 1-2 take several doses of miralax throughout the day, if still no BM by the next day- take 1/2 bottle of magnesium citrate. If no results in 6 hrs take the reminding 1/2 the bottle. Allergies/Adverse Reactions: Allergies No Known Allergies Allergy (Verified 06/04/18 08:54) Medications to take at Discharge Hydrocodone Bitart/Apap 5-325 [[place] 5MG-325MG] 1 - 2 tablet PO Q6H PRN PRN 4 Days #20 tablet 06/04/18 Sertraline HCl [Zoloft] 50 mg PO QHS 06/04/18 The following prescriptions were given: Hydrocodone Bitart/Apap 5-325 [[place] 5MG-325MG] 1 - 2 tablet PO Q6H PRN PRN 4 Days #20 tablet PRN Reason: Pain Primary Care Physician: Care Physician,No Primary [Primary Care Provider] - Test Results: Test results from this visit will be discussed in further detail at your follow-up appointment, if applicable. Please Follow Up With: Jeanie Price MD - after 5pm/weekends call [phone] with any issues When: call the office for f/u appt in 2 weeks, Proposed Discharge Date: 06/04/18
--- NOTE | 2018-06-04 15:37 | DCINST_ITS ---
Discharge Diet: Light diet - advance as tolerated Discharge Activity: May not drive while taking narcotic pain medications. May shower in (days): 1 Lifting Restrictions: no lifting >20 lbs for 4 weeks Call your doctor if your incision/area has: Continuous Slow Oozing, Sudden Increased Bleeding, Increased Pain/ Swelling, Increased Redness, Foul Smelling Discharge, Swelling at the incision site Call your doctor if you observe: Fever of 101 or Higher Remove Dressing in (days):: 1 - steris will fall off in 7-10 days, if not you can remove Additional Instructions: [place] can cause constipation. ok to take ibuprofen/advil with norco 400-600 mg PO q6h PRN pain. take all pain meds with food. Take stool softener daily with pain meds. if no BM in 1-2 take several doses of miralax throughout the day, if still no BM by the next day- take 1/2 bottle of magnesium citrate. If no results in 6 hrs take the reminding 1/2 the bottle. Allergies/Adverse Reactions: Allergies No Known Allergies Allergy (Verified 06/04/18 08:54) Medications to take at Discharge Hydrocodone Bitart/Apap 5-325 [[place] 5MG-325MG] 1 - 2 tablet PO Q6H PRN PRN 4 Days #20 tablet 06/04/18 Sertraline HCl [Zoloft] 50 mg PO QHS 06/04/18 The following prescriptions were given: Hydrocodone Bitart/Apap 5-325 [[place] 5MG-325MG] 1 - 2 tablet PO Q6H PRN PRN 4 Days #20 tablet PRN Reason: Pain Primary Care Physician: Care Physician,No Primary [Primary Care Provider] - Test Results: Test results from this visit will be discussed in further detail at your follow- up appointment, if applicable. Please Follow Up With: Jeanie Price MD - after 5pm/weekends call [phone] with any issues When: call the office for f/u appt in 2 weeks, Proposed Discharge Date: 06/04/18
== END 2018-06-04 19:45 | disposition home or self-care (01) ==
LOC: ED 11:36 → SDC 12:13 → MS3 12:16
PROVIDERS: Admitting Provider Surgery; Emergency Provider Emergency Medicine; Visit Provider Surgery
PROC: 0DTJ4ZZ Resection of Appendix, Percutaneous Endoscopic Approach (ICD-10-PCS; CPT 44970; principal; 2018-06-04 13:00)
DX: K35.80 Unspecified acute appendicitis (principal); J45.20 Mild intermittent asthma, uncomplicated; E28.2 Polycystic ovarian syndrome; Q07.00 Arnold-Chiari syndrome without spina bifida or hydrocephalus; F41.9 Anxiety disorder, unspecified; F32.9 Major depressive disorder, single episode, unspecified; Z79.899 Other long term (current) drug therapy; F17.200 Nicotine dependence, unspecified, uncomplicated
CPT/HCPCS: 44970; 74177; 80048; 81001; 84703; 85025; 88304; 96361; 96365; 96375; 96376; 99218; 99284; 99406; J7030; J7120; Q9967; A4216; C1760; G0378; J2405

== ENCOUNTER → 2019-03-28 10:43 | Outpatient (CLI) | payer OTHER, SELFPAY ==
[2018-06-04 14:42] VITALS: BMI 36.0
[2019-03-28 11:54] LABS: Hematocrit 42.4 % (37-47); Hemoglobin 14.8 g/dL (12.0-15.0); Mean Corp Hgb Conc 34.9 g/dL (32-36); Mean Corpuscular Hgb 33.3 pg (27.0-32.0); Mean Corpuscular Volume 95.5 fL (81-99); Mean Platelet Vol. 10.4 fl (6.2-12.0); Platelet Count 341 K/mm3 (150-450); RBC Distribution Width CV 11.9 % (11.6-14.6); Red Blood Count 4.44 M/mm3 (4.2-5.4); White Blood Count 9.2 K/mm3 (4.4-11.0)
[2019-03-28 12:31] LABS: AST(SGOT) 14 U/L (15-37); Alanine Aminotransfer ALT/SGPT 26 U/L (13-56); Albumin, Serum 3.9 g/dL (3.2-5.0); Alkaline Phosphatase 53 U/L (45-117); Anion Gap 6 (5-15); BUN 9 mg/dL (7-18); BUN/Creat Ratio 13.6 RATIO (10-20); Calcium,Total 8.9 mg/dL (8.5-10.1); Chloride 108 mmol/L (98-107); Cholesterol 159 mg/dL (200); Creatinine, Serum 0.66 mg/dL (0.55-1.02); EST Glomerular Filtration Rate 115 mL/min (>60); Est Glom Filt Rate - Afr Amer 139 mL/min (>60); Globulin 3.9 g/dL (2.2-4.2); Glucose 87 mg/dL (74-106); High Density Lipoprotein 45 mg/dL; Protein, Total 7.8 g/dL (6.4-8.2); Sodium Level 141 mmol/L (136-145); Thyroid Stim Hormone (TSH) 0.76 uIU/mL (0.358-3.74); Triglycerides 51 mg/dL; Very Low Density Lipoprotein 10 mg/dL (5-40)
== END ==
LOC: LAB 10:51
PROVIDERS: Family Provider Family Medicine; PCP Family Medicine; Referring Provider Family Medicine; Visit Provider Family Medicine
DX: Z00.00 Encounter for general adult medical examination without abnormal findings (principal); F41.9 Anxiety disorder, unspecified
CPT/HCPCS: 36415; 80053; 80061; 84443; 85027

== ENCOUNTER 2019-07-05 14:34 | Emergency (ER) | payer OTHER, SELFPAY ==
[2019-07-05 14:35] VITALS: BP 155/88; PULSE 133; RESP 18; TEMP 36.6; O2SAT 97; BMI 38.9
[2019-07-05 15:20] VITALS: RESP 18
--- NOTE | 2019-07-05 15:30 | ED.DCSUM_ITS ---
- ER Visit Summary Date of Service: 07/05/19 Chief Complaint: [Back pain] History of Present Illness: The patient is a 24 F [resents to the emergency room with complaint of back pain that started a week ago. Patient denies any trauma to her back. Patient states that she works as an [employer] and chronically has some intermittent back pain. Patient states that this is the most severe that it spent however. Patient today laid down for nap and then could not get back up because of the pain. Time she has had pain radiating down her right leg to about the knee. She describes some intermittent paresthesias to the right right leg. She currently rates her pain a 7 out of 10. Patient's been using Flexeri l at home but not helping with the discomfort. She has not taken any ibuprofen or Tylenol. Patient denies any fevers. She denies urinary symptoms. She denies any change in bowel bladder function. She denies weakness the extremities. She denies saddle anesthesia.] She denies IV drug use. Physical Examination: [HEENT-PERRLA, EOMI. Cranial nerves II through XII grossly intact. TMs clear. Mucous membranes moist. No adenopathy. Cardiovascular-regular rate and rhythm without murmur or ectopy Lungs-clear to auscultation, chest wall stable without crepitus or subcu e mphysema Abdomen-normoactive bowel sounds, soft, nontender, no rebound or rigidity, no peritoneal signs. Back exam-patient has mild diffuse tenderness over the right lower lumbar spine paraspinal musculature. No bony tenderness on exam. No erythema or warmth noted. No crepitus noted. Patient does have a positive straight leg raise on the right with pain at about 30 degrees while seated. Deep tendon reflexes are plus 2 out of 4 bilaterally at the patella and Achilles. Patient has normal 5 extension bilaterally. Patient has normal sensation to light touch. Extremities-intact ?4, normal range of motion, normal pulses, atraumatic] Test Results: [None indicated] Emergency Department Course and Treatment: [She was medicated with Dilaudid, Norflex, and Toradol.] Treatment Plan: [She will be referred to primary care physician correspondence renew clerk for no doc for follow-up. Patient given a prescription for [place], Flexeril, and naproxen.] Disposition: [Discharged home in stable condition] Impression: [Right lumbar radiculopathy/sciatica] This note was generated with [employer] dictation software. It may contain incorrect words, spelling, and punctuation that were not noted in review of the chart prior to signing ED Disposition - Plan for ED Patient: Referrals: Gabriel Davenport MD [Primary Care Provider] -
--- NOTE | 2019-07-05 15:32 | ED.DEP ---
ED Disposition - Plan for ED Patient: Instructions: BACK SPASM, No Trauma, BACK PAIN w/ SCIATICA Prescriptions: cycloBENZAPRine HCl [Flexeril] 10 mg PO TID PRN #20 tab PRN Reason: Muscle Spasm Prescription Printed Naproxen [Naprosyn] 500 mg PO BID PRN #20 tab Prescription Printed Hydrocodone Bitart/Apap 5-325 [[place] 5MG-325MG] 1 tab PO Q4H PRN PRN 2 Days #20 tab PRN Reason: Pain Prescription Printed Referrals: Gabriel Davenport MD [Primary Care Provider] - Harjinder Campo MD [STAFF PHYSICIAN] - 3-5 Days
[2019-07-05] MEDS: HYDROmorphone 1 MG/ML Syringe IM (16:05)
[2019-07-05] MEDS: Ketorolac 60 MG/2 ML Vial IM (16:08)
[2019-07-05] MEDS: Orphenadrine 60 MG/2 ML Ampul IM (16:10)
[2019-07-05 16:39] VITALS: BP 123/66; PULSE 81; RESP 16; O2SAT 97
== END 2019-07-05 16:39 | disposition home or self-care (01) ==
PROVIDERS: Emergency Provider Emergency Medicine; Family Provider Family Medicine; PCP Family Medicine
DX: M54.16 Radiculopathy, lumbar region (principal); M54.31 Sciatica, right side; Z72.0 Tobacco use
CPT/HCPCS: 96372; 99282

== ENCOUNTER 2019-11-02 05:05 | Emergency (ER) | payer OTHER, SELFPAY ==
[2019-11-02 05:06] VITALS: BP 133/70; PULSE 103; RESP 20; TEMP 37.2; O2SAT 100; BMI 40.2
--- NOTE | 2019-11-02 05:47 | ED.VISSUMM ---
- ER Visit Summary Date of Service: 11/02/19 Chief Complaint: Vaginal laceration History of Present Illness: The patient is a 24 F who presents with a vaginal laceration. She was engaging in intercourse when she was on top when she moved into a position and felt a pain in her vaginal area. She noticed some bleeding. She believes that she has a vaginal laceration. Her immunizations are up-to-date. She has pain around the vaginal area but denies any other symptoms. Physical Examination: Vital signs are reviewed. exam with female nurse compliance auditor shows 2, 2 cm lacerations at the top of the left and right labia minora. No active bleeding at this time. Tender around this area. No other injuries noted. Test Results: None performed Emergency Department Course and Treatment: Laceration repair was performed by myself. Chlorhexidine was used to cleanse the area. 2 cc of lidocaine was used to anesthetize the area. The left laceration was repaired with 2, 5?0 simple Vicryl sutures. The right laceration was repaired with 3, 5?0 simple Vicryl sutures. She will perform local wound care to these areas. The sutures will likely fall out on their own in 7 to 10 days. Treatment Plan: [] Disposition: Discharge Impression: Vaginal laceration, #2, 2 cm each Laceration repair by ED physician This note was generated with [employer] dictation software. It may contain incorrect words, spelling, and punctuation that were not noted in review of the chart prior to signing ED Disposition - Plan for ED Patient: Instructions: LACERATION, All Referrals: Gabriel Davenport MD [Primary Care Provider] -
[2019-11-02 05:55] VITALS: BP 137/74; PULSE 93; O2SAT 97
== END 2019-11-02 05:56 | disposition home or self-care (01) ==
LOC: ED 05:47
PROVIDERS: Emergency Provider Emergency Medicine; PCP Family Medicine
DX: S31.41XA Laceration without foreign body of vagina and vulva, initial encounter (principal); W51.XXXA Accidental striking against or bumped into by another person, initial encounter; Y92.9 Unspecified place or not applicable; Y99.9 Unspecified external cause status; Z72.0 Tobacco use
CPT/HCPCS: 12002; 99282

== ENCOUNTER 2020-01-21 12:07 | Emergency (ER) | payer OTHER, SELFPAY ==
[2020-01-21 12:07] VITALS: BP 150/100; PULSE 102; RESP 18; TEMP 36.4; O2SAT 98
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
[2020-01-21 13:49] LABS: D-Dimer Quantitative (DVT/PE) < 0.27 FEU/ug/m (0.27-0.49)
[2020-01-21 14:45] VITALS: BP 117/87; PULSE 85; RESP 16; O2SAT 100
== END 2020-01-21 14:45 | disposition home or self-care (01) ==
PROVIDERS: Emergency Provider Emergency Medicine; PCP Family Medicine
DX: M54.16 Radiculopathy, lumbar region (principal); F90.9 Attention-deficit hyperactivity disorder, unspecified type; M54.5 Low back pain; G89.29 Other chronic pain; J45.20 Mild intermittent asthma, uncomplicated; F17.200 Nicotine dependence, unspecified, uncomplicated
CPT/HCPCS: 85379; 99282

== ENCOUNTER → 2021-02-12 08:43 | Outpatient (CLI) | payer OTHER, SELFPAY ==
[2020-10-29 10:26] VITALS: BMI 43.4
[2021-02-12 09:03] LABS: Absolute Lymphocyte Count 2.88 X10^3/uL (0.83-4.51); Absolute Neutrophil Count 5.2 X10^3/uL (2.0-7.7); Basophil# 0.06 X10^3/uL; Basophil% 0.7 % (0-1); Eosinophil# 0.25 X10^3/uL; Eosinophils% 2.8 % (0-5); Hemoglobin 14.5 g/dL (12.0-15.0); Lymphocyte # 2.88 X10^3/ul (0.83-4.51); Lymphocyte % 31.9 % (19-41); Mean Corpuscular Hgb 31.8 pg (27.0-32.0); Mean Corpuscular Volume 96.5 fL (81-99); Mean Platelet Vol. 10.4 fl (6.2-12.0); Monocyte% 6.6 % (0-10); NRBC Flagged by Analyzer 0 % (0-5); Neutrophil % 57.6 % (47-70); Platelet Count 359 K/mm3 (150-450); RBC Distribution Width CV 11.9 % (11.6-14.6); RBC Distribution Width SD 42.3 fl (35.1-43.9); Red Blood Count 4.56 M/mm3 (4.2-5.4)
[2021-02-12 09:34] LABS: Anion Gap 5 (5-15); BUN 7 mg/dL (7-18); BUN/Creat Ratio 9.7 RATIO (10-20); Calcium,Total 8.6 mg/dL (8.5-10.1); Chloride 105 mmol/L (98-107); Creatinine, Serum 0.72 mg/dL (0.55-1.02); EST Glomerular Filtration Rate 103 mL/min (>60); Est Glom Filt Rate - Afr Amer 125 mL/min (>60); Glucose 98 mg/dL (74-106); Potassium 3.8 mmol/L (3.5-5.1); Sodium Level 139 mmol/L (136-145)
== END ==
PROVIDERS: PCP Family Medicine; Visit Provider Specialist
DX: Z01.818 Encounter for other preprocedural examination (principal)
CPT/HCPCS: 36415; 80048; 85025

== ENCOUNTER → 2021-02-14 14:57 | Outpatient (CLI) | payer OTHER, SELFPAY ==
[2020-10-29 10:26] VITALS: BMI 43.4
--- NOTE | 2021-02-14 | CYST_PTH ---
PATIENT: JOSH GUALLPA LOC: [facility] U#:[id number] AGE/SX: 30/F ROOM: RE02/14/[address]: Dr. Casper Downey MD : 1995 BED: DIS: SPEC #: [id number] RECD: 02/14/21 14:54 STATUS: MAKENNA VALLECILLOEstelita #: [id number] RICHARD: 02/14/21 00:[address]: Casper Downey DEPT: SURGICAL PATHOLOGY RECD BY: Fidel Russell ENTERED: 02/17/21 08:06 SP TYPE: Cyst OTHR DR: Dr. Gabriel Davenport MD Tissues: CYST Procedures: Surgery Specimen Level III HEADER OPERATION: Excision cyst right wrist PRE-OP DIAGNOSIS: Cyst right wrist TISSUE SUBMITTED: Cyst right wrist MICROSCOPIC DIAGNOSIS Cyst right wrist, biopsy: Consistent with ganglion cyst. AM:pako 02/18/2021 MICROSCOPIC DESCRIPTION Slides are reviewed. GROSS DESCRIPTION Received in fixative is one container labeled with the patient's name and designated cyst right wrist. The specimen consists of an irregular piece of joshi soft tissue measuring 2 x 1 x 0.5 cm. The specimen is bisected and submitted entirely in one cassette. / ENEDINA:pako 02/17/21 TC:5 CPT: 36286
== END ==
PROVIDERS: PCP Family Medicine; Visit Provider Specialist
DX: M67.431 Ganglion, right wrist (principal)
CPT/HCPCS: 88304

== ENCOUNTER 2021-03-11 00:16 | Emergency (ER) | payer OTHER, SELFPAY ==
[2020-10-29 10:26] VITALS: BMI 43.4
[2021-03-11 00:17] VITALS: BP 121/65; PULSE 102; RESP 20; TEMP 36; O2SAT 95; BMI 42.9
[2021-03-11 00:21] VITALS: O2SAT 95
[2021-03-11 00:44] VITALS: PULSE 107; RESP 22
--- NOTE | 2021-03-11 00:53 | ED.RN ---
[facility] HAVING ISSUES. PATIENT GIVEN 60 MG OF PREDNISONE PO.
--- NOTE | 2021-03-11 01:33 | EX.ED.DYSGE1 ---
HPI History of Present Illness Chief Complaint: Shortness of Breath Informant: patient Onset/Context/Timing Onset: Today Current Severity: Moderate Maximum Severity: Moderate Narrative Narrative: Patient presents with shortness of breath after inhaling some cleaning fumes. She had washed her dog after it was sprayed by a skunk. In order to clean the bathtub she admits to different chemicals together and was overcome with fumes. She reports lung tightness and shortness of breath. Patient does have a history of mild asthma. [facility] Medical History Chronic neck and back pain Mild intermittent asthma Home Medications albuterol sulfate [Ventolin HFA] 2 puff INHALATION Q4H PRN PRN #1 unit 03/11/21 [Rx Last Taken Unknown] prednisone 60 mg PO DAILY #12 tab 03/11/21 [Rx Last Taken Unknown] Allergy/AdvReac Type Severity Reaction Status Date / Time No Known Allergies Allergy Verified 03/11/21 00:16 Family History Other Anxiety Cancer Depression Diabetes Hypertension Surgical History H/O knee surgery H/O removal of cyst History of History of tonsillectomy and adenoidectomy History of tympanostomy tube placement Hx of appendectomy Social History Smoking Status: Current every day smoker tobacco type: cigarettes alcohol intake: never ROS ROS ED Constitutional Constitutional ED: Denies chills or fever(s) Eyes Eyes: Denies change in vision ENT ENT ED: Denies sore throat Cardiovascular Cardiovascular: Denies chest pain Respiratory/Chest Respiratory/Chest: Reports cough and dyspnea Gastrointestinal Gastrointestinal: Denies abdominal pain, diarrhea, nausea or vomiting Genitourinary Genitourinary ED: Denies dysuria Musculoskeletal Musculoskeletal: Denies back pain Integumentary Denies rash Neurologic Neurologic: Denies headache(s) or weakness Psychiatric Psychiatric: Denies anxiety or depression Allergic/Immunologic Allergic/Immunologic ED: Denies urticaria EXAM Physical Exam Const Vital Signs: 03/11/21 00:17 03/11/21 00:21 03/11/21 00:44 Temperature 96.8 F L Temperature Source Temporal Pulse Rate 102 H 107 H Respiratory Rate 20 H 22 H Respiratory Effort Short of Breath Respiratory Depth Normal Respiratory Pattern Normal Normal Blood Pressure 121/65 H Blood Pressure Mean 83 Pulse Ox 95 Positive well nourished and well developed General Appearance ED: well developed HEENT Reports normocephalic and head/scalp atraumatic Eyes PERRL and EOMs intact bilaterally Neck supple Chest Wall inspection of chest normal and palpation of chest normal Resp Resp Narrative: Slightly diminished lung sounds throughout but clear to auscultation. Cardio regular rate and regular rhythm GI normal to inspection, nondistended, normoactive bowel sounds Palpation: soft Extremity normal to inspection Neuro oriented x3 Sensorium / Orientation: alert Psych mental status grossly normal Skin no rashes or lesions noted MDM MDM MDM Narrative Medical decision making narrative: Patient is given 60 mg of p.o. prednisone and a DuoNeb treatment. Treatment and Re-Evaluation Comments:: On repeat evaluation patient feels improved. O2 sats have maintained in the mid 90s. At this time patient be given prescription for 4 additional days of prednisone as well as an albuterol inhaler. Discharge Plan Triage Chief Complaint: Shortness of Breath ED Provider: Maira Almendarez Dx/Rx/DC Orders Clinical Impression: Pneumonitis due to fumes and vapors Instructions: ED Understanding Hypersensitivity Pneumonitis Prescriptions: New prednisone 20 mg tablet 60 mg PO DAILY Qty: 12 RF: 0 albuterol sulfate [Ventolin HFA] 90 mcg/actuation HFA aerosol inhaler 2 puff inhalation Q4H PRN PRN (Reason: Wheezing) Qty: 1 RF: 0 Primary Care Provider: Gabriel Davenport Referrals: Gabriel Davenport MD [Primary Care Provider] - 3-5 Days if not improving Disposition Disposition: Home, Self Care
[2021-03-11 01:42] VITALS: BP 138/71; PULSE 93; RESP 18; O2SAT 96
== END 2021-03-11 02:17 | disposition home or self-care (01) ==
LOC: ED 01:39
PROVIDERS: Emergency Provider Emergency Medicine; PCP Family Medicine
DX: J68.0 Bronchitis and pneumonitis due to chemicals, gases, fumes and vapors (principal); F17.210 Nicotine dependence, cigarettes, uncomplicated; Z79.52 Long term (current) use of systemic steroids; Z79.899 Other long term (current) drug therapy
CPT/HCPCS: 94640; 99283

== ENCOUNTER 2021-03-31 17:30 | Outpatient (RCR) | payer OTHER, SELFPAY ==
[2020-10-29 10:26] VITALS: BMI 43.4
--- NOTE | 2021-03-03 18:31 | HP.OTEVAL ---
Patient's Visit Information JOSH GUALLPA is a 25 year old F, referred to Occupational Therapy by Rich Tillman PA-C, with a diagnosis of R wrist Ganglion cyst. Date of Evaluation: 03/03/21 Occupational Therapist: Eloina Cobb - Subjective Pt presents to OT eval s/p post cyst removal on radial R wrist; surgery was 02/14/21- pt states having going to back about 1 week after surgery which she thinks hindering the healing process. Pt states that that when she grasps, she has n/t all over dorsal hand, it feels tight and stiff, - no restrictions were given to patient after sx. 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 - ADLs Comments: Pt can complete all ADL tasks but it can be painful- brushing hair is painful and difficult - Pain R wrist 5 Pain Intensity Range: 2, 7 - Objective Incision along radial wrist is still healing- recently having opened and is scabbing - ROM Wrist: Flexion R 31 L 61 Extension R 70 L 85 Opposition: 10 - Strength Associate Data Scientist: R 30# L 90# Lateral Pinch: R 15# L 23# Tripod Pinch: R 13# L 23# Strength Comments: Slight pain when completing tripod grasp - Sensation Sensation Comments: Pt states having normal sensation except for radial nerve innervation- with radial nerve sensation is lacking descriptive sensation only feeling pressure - Goals Goal:: Pt will improve R inspecting engineer strength to at least 60# in order to complete household and work responsibilities with more efficiency. Goal:: Pt will improve R wrist ROM to WFL compared to L wrist in order to complete Prior daily tasks. Goal:: Pt will decrease pain levels to no more than a 3/10 at worse in order to complete daily activities Goal:: Pt will report a decrease in hypersensitivity over R dorsal wrist in order to complete ADLs/IADLs, and to put gloves on during work w/o difficulty. Goal:: Pt will demo Good understanding of HEP compliance and education in order to achieve functional goals. - Rehabilitation General Assessment: Pt presents s/p sx for R wrist ganglion cyst removal on radial side. Pt states that she has been having difficulty with functional use d/t pain, swelling, limited ROM, strength, and sensitivity. 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 Pt states that after work, she has a lot of pain that goes up into her forearm. Rehabilitation Potential: Good - Anticipated Interventions A/AAROM/PROM, Strengthening, Edema Control, Scar Care, Massage, Triggerpoint Release, Desensitization, Sensory Retraining, Modalities, Orthoses, Joint Protection/Energy Conservation, Fine Motor Coord/Leopoldo - Visit Plan Frequency: 2x /Week Duration: 4-6 Weeks General Plan: Pt will benefit from cont. therapy services in order to address skill deficits; 2x/week for 4-6 weeks pending progress and pain levels. TEXT: Thank you for the opportunity to evaluate your patient. For Medicare and Medicare HMO plans, please review the plan of care and approve it. It will need to be FAXED BACK to us at [phone] for Medicare purposes. Please let me know if there are questions or concerns regarding this plan of care. Physician Signature: Date:
--- NOTE | 2021-03-31 18:40 | HP.OTDCSUM_ITS ---
It has been my pleasure to treat JOSH GUALLPA under orders from Rich Tillman PA-C, for the diagnosis of R wrist Ganglion cyst for a total of 7 visit(s). Please see the following information for a summary of their discharge status. 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 lateral- 18#. 3-jaw- 16#. 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 Goal:: Pt will improve R wrist ROM to WFL compared to L wrist in order to complete Prior daily tasks. Goal:: Pt will decrease pain levels to no more than a 3/10 at worse in order to complete daily activities Goal:: Pt will report a decrease in hypersensitivity over R dorsal wrist in order to complete ADLs/IADLs, and to put gloves on during work w/o difficulty. Goal:: Pt will demo Good understanding of HEP compliance and education in order to achieve functional goals. Plan: cont POC Discharge Comments: pt has met goals in OT and due to husbands recent stroke she request D/c. therapy advised to cont with scar mtg and return to use as she arlene pt demo understanding. If there are questions or concerns regarding this patient's occupational therapy, please fell free to call me at [phone]. Thank you for the referral of this patient. Sincerely, Monse Ortega, OTR/L, CHT
== END 2021-03-31 19:00 | disposition home or self-care (01) ==
LOC: OT 17:30
PROVIDERS: PCP Family Medicine; Referring Provider Physician Assistant Surgical; Visit Provider Physician Assistant Surgical
DX: M67.431 Ganglion, right wrist (principal)
CPT/HCPCS: 97110; 97140; 97165; 97530

== ENCOUNTER 2022-05-29 09:30 | Inpatient (IN) | payer MEDICAID, SELFPAY ==
--- NOTE | 2022-05-26 15:14 | PCM.HP.BLA ---
History and Physical Date of Admission: 05/29/22 Pre-Op History and Physical ? HPI: The patient is a 26 year old female presenting for pre-operative visit. She is scheduled for and bilateral salpingectomy, for Repeat elective cs and desires sterlization on 05/29/22. Procedure discussed along with risks, benefits and complications. Other alternatives discussed for management. Consent form signed? Yes. ? ? PAST MEDICAL HISTORY PAST MEDICAL HISTORY Diagnosis Date ? Abnormal Pap smear of cervix ? ? ASCUS with positive high risk HPV cervical 09/22/2016 ? Chiari I malformation (HCC) ? ? Dysthymic disorder ? ? Depression (non-psychotic)/ANXIETY ? PCO (polycystic ovaries) ? ? depression ? ? Outpatient treatment (never took medication) ? ? PAST SURGICAL HISTORY PAST SURGICAL HISTORY Procedure Laterality Date ? DELIVERY ONLY ? 03/15/2011 ? x2 last one in 2018 ? KNEE ARTHROSCOPY/SURGERY ? ? ? LAPAROSCOPY DIAGNOSTIC ? ? ? MYRINGOTOMY ASPIR&/EUSTACHIAN TUBE NFLTJ ANES ? ? ? Myringotomy/tubes X5 ? PAST SURGICAL HISTORY OF ? 01/2021 ? ganglion cyst right wrist ? TONSILLECTOMY PRIMARY/SECONDARY <AGE 12 ? ? ? Tonsillectomy AND ADNOIDECTOMY ? VAGINOSCOPY ? CURRENT MEDICATIONS Current Outpatient Medications Medication Sig Dispense Refill ? blood sugar diagnostic test strip 1 Strip four times daily. Use as instructed 120 Strip 9 ? Lancets lancets 1 Each four times daily. Use as instructed 120 Each 9 ? pyridoxine, vitamin B6, (VITAMIN B-6) 50 mg tablet Take 1 tablet by mouth twice daily. (Patient not taking: Reported on 02/19/2022 ) 100 tablet 1 ? aspirin, enteric coated (ASPIRIN, ENTERIC COATED) 81 mg EC tablet Take 1 tablet by mouth once daily. Start at 12 weeks. 100 tablet 1 ? acetaminophen (TYLENOL) 500 mg tablet Take 500 mg by mouth every 8 hours as needed (headache). ? ? ? Gxesfsog-Kw-Frq-Fe-FA ( VITAMIN) tab Take 1 tablet by mouth. ? ? ? No current facility-administered medications for this visit. ? ? ALLERGIES: Cats, Dogs, Dust, Grass Pollen, Horses [Other], and Pollen ? PERSONAL HISTORY: SOCIAL HISTORY Social History ? Tobacco Use ? Smoking status: Every Day ? ? Packs/day: 0.50 ? ? Years: 10.00 ? ? Pack years: 5.00 ? ? Types: Cigarettes ? Smokeless tobacco: Never Vaping Use ? Vaping Use: Never used Substance Use Topics ? Alcohol use: No ? Drug use: No ? FAMILY HISTORY: FAMILY HISTORY FAMILY HISTORY Problem Relation Age of Onset ? Diabetes Mother ? ? Psychiatry Mother ? ? DEPRESSION ? Lipids Father ? ? Psychiatry Father ? ? ANXIETY ? Diabetes Father ? ? No Known Problems Brother ? ? Alcohol/Drug Brother ? ? No Known Problems Maternal Grandmother ? ? Diabetes Maternal Grandfather ? ? Cancer Maternal Grandfather ? ? Leukemia ? Diabetes Paternal Grandmother ? ? Diabetes Paternal Grandfather ? ? Heart Paternal Grandfather ? ? ADD/ADHD Daughter ? ? Cancer Maternal Uncle ? ? SKIN CANCER ? No Known Problems Son ? ? ? REVIEW OF SYMPTOMS: negative except as noted above PHYSICAL EXAMINATION: ? VITALS: Blood pressure 115/80, weight 256 lb (116.1 kg), last menstrual period 08/29/2021. ? GENERAL: The patient is well nourished, well hydrated in no acute distress. , The patient is oriented to time, place, and person. NECK: full range of motion GENITALIA: deferred WET PREP: Not indicated ? IMPRESSION: @ 37.5 weeks- C/S scheduled 39 weeks and desires sterilization ? PLAN: repeat elective cs and sterlization with salpingectomy ? Pt has been counseled on risks/benefits and alternatives of surgery including but not limited to anesthesia, bleeding, infection, injury to pelvic structures including bowel, bladder, ureters and vessels. Pt wishes to proceed with surgery at this time. Reviewed that has had previous epidural - neurology agrees ok if had previously - notes were previously sent to L&D regarding this and anesthesia was consulted- again reviewed with Dr. Snyder on 05/20/22 ? Pre and post op instructions reviewed Title 19 previously signed. ? I have reviewed and updated past medical and surgical history, medications and allergies Sonya Logan MD ?9:56 AM
[2022-05-29] VITALS (20 sets, daily range): BP systolic 108–141; BP diastolic 46–76; PULSE 80–105; RESP 14–18; TEMP 35.6–36.9; O2SAT 93–97; BMI 40.5
[2022-05-29] MEDS: Lactated Ringers 1,000 ML 999 ML IV (10:00)
[2022-05-29 10:25] LABS: Absolute Lymphocyte Count 2.64 X10^3/uL (0.83-4.51); Absolute Neutrophil Count 8.9 X10^3/uL (2.0-7.7); Basophil# 0.03 X10^3/uL; Basophil% 0.2 % (0-1); Eosinophil# 0.15 X10^3/uL; Eosinophils% 1.2 % (0-5); Hematocrit 37.3 % (37-47); Hemoglobin 12.7 g/dL (12.0-15.0); Lymphocyte # 2.64 X10^3/ul (0.83-4.51); Mean Corpuscular Hgb 31.8 pg (27.0-32.0); Mean Corpuscular Volume 93.5 fL (81-99); Monocyte# 0.73 X10^3/uL; Monocyte% 5.8 % (0-10); NRBC Flagged by Analyzer 0 % (0-5); Neutrophil # 8.92 X10^3/uL (2.7-7.7); Neutrophil % 71.2 % (47-70); Platelet Count 344 K/mm3 (150-450); RBC Distribution Width CV 13.1 % (11.6-14.6); RBC Distribution Width SD 44.9 fl (35.1-43.9); Red Blood Count 3.99 M/mm3 (4.2-5.4); White Blood Count 12.6 K/mm3 (4.4-11.0)
[2022-05-29] MEDS: Lactated Ringers 1,000 ML 150 ML IV (11:07)
[2022-05-29] MEDS: Acetaminophen 500 MG Tablet 1000 MG PO ×2 (11:45→18:23)
[2022-05-29] MEDS: Sodium Citrate/Citric Acid 30 ML UDC PO (11:46)
[2022-05-29] MEDS: Cefazolin 2 GM in 0.9% Normal Saline 100 ML IV (12:08)
--- NOTE | 2022-05-29 12:20 | FALS_PTH ---
PATIENT: JOSH GUALLPA LOC: [facility] U#:[id number] AGE/SX: 26/F ROOM: WP008 RE05/29/[address]: Dr. Sonya Baldwin, MDDOB: 1995 BED: 1 DIS: 05/30/2022 SPEC #: [id number] RECD: 05/29/22 14:41 STATUS: MAKENNA TONYA #: [id number] RICHARD: 05/29/22 12:[address]: Sonya Baldwin DEPT: SURGICAL PATHOLOGY RECD BY: Hans Tejeda Tissues: Fallopian tube Procedures: Surgery Specimen Level II HEADER OPERATION: Tubal ligation PRE-OP DIAGNOSIS: Sterilization TISSUE SUBMITTED: Fallopian tubes, tie on right MICROSCOPIC DIAGNOSIS Right fallopian tube, salpingectomy: Complete cross-section of fallopian tube with no pathologic change. Left fallopian tube, salpingectomy: Complete cross-section of fallopian tube with no pathologic change. AM:pako 06/02/2022 MICROSCOPIC DESCRIPTION Slides are reviewed. GROSS DESCRIPTION Received in fixative is one container labeled with the patient's name and designated bilateral fallopian tubes, suture in right tube. The specimen consists of bilateral fallopian tubes including fimbrial ends. The right fallopian tube measures 9 cm in length and 0.4 cm in diameter and left fallopian tube measures 6.5 cm in length and 0.5 cm in diameter. Sections reveal unremarkable cut surfaces. Special Diet Cook sections are submitted in two cassettes as follows: 1 ? left fallopian tube, 2 ? right fallopian tube. / SJ:pako 06/01/2022 TC:4 CPT: 30977 x2
--- NOTE | 2022-05-29 12:48 | EX.PCM.OBRPT ---
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 sHe was placed in the supine position. She was then prepped and draped in normal sterile fashion. Once spinal anesthesia was found to be adequate skin incision was made with a scalpel in a Pfannenstiel fashion. It was carried down to the underlying layer of the fascia. Fascia was then incised midline with scapel and extended laterally using curved brito. 2 straight Darci's were placed in the superior aspect of the fascial edge and the rectus muscles were dissected off shaprly. Attention was then turned to the inferior aspect where again the fascial edge was grasped with 2 straight Darci clamps tented up and the rectus muscle dissected off bluntly. At this time the rectus muscles were grasped in the midline using 2 Allis clamps and scalpel was used to separate the rectus muscles. Using blunt force the peritoneum was then entered. Metzenbaums were used to take down the rectus muscles inferiorly as well as the peritoneum. bladder adhesions noted- At this time the vesicouterine peritoneum was identified. Metzenbaum scissors were used to create a bladder flap and then taken down digitally. Uterine incision was made in a low transverse fashion with the scalpel and then entered bluntly. Gentle opposing traction was placed to extend the uterine incision. The membranes were ruptured amniotic fluid clear. Infant's head was then brought to the uterine incision was delivered atraumatically followed by the rest 's body. At this time delayed cord clamping was performed mouth nose were suctioned. was then handed to the waiting nursery team. The placenta was then removed with gentle traction. The uterus was removed from the intra-abdominal cavity is wrapped in a moist lap. It was cleared of all clots and debris using a moist lap. Ring clamps were placed on the uterine angles. #1 Vicryl suture was used in a running locked fashion for closure. At this time then the uterus was placed back into abdominal cavity uterine incision was evaluated and noted to be of good hemostasis. Tubes and ovaries were evaluated they were normal. The tubes were grasped in an avascular area with the [place] LigaSure was used to coagulate and ligate along the mesosalpinx to remove the entire tube was first performed on the right than on the left side. Excellent hemostasis was appreciated. Gutters were cleared of all clots and debris Tye was placed over the uterine incision-which was hemostatic. The peritoneum was grasped with Kellys. Peritoneum was reapproximated using #2 Vicryl suture in a running fashion. The fascia was then reapproximated using #1 PDS in a running fashion. Subcutaneous layer was evaluated and Bovie was used for any small oozing that was noted, Tye placed. #2-0 plain gut suture was then used to reapproximate the subcutaneous layer 4-0 Vicryl on a Timur needle was used to reapproximate the skin in a subcutaneous fashion. Dry sterile dressing was applied. Instrument lap needle count were correct ?2. Anticipated normal postoperative course for this patient. Presentation: Positive for Vertex Amniotic Membrane Rupture Type: Artificial Amniotic Fluid Description: Clear Placental Delivery Description: Expressed Placenta Disposition: [facility] Cord Vessel Description: 3 Vessels Cord Entanglement: None Infant A Gender: Male (1 minute): 8 (5 minute): 9 Delayed Cord Clamping: Yes Complications Risks of Surgery Discussed w/Patient: Bleeding, Anesthesia Risks, Infection, Need for Future C-Sections, Permanency, Injury to surrounding structure(s) including bowel and bladder and Availability of other non-permanent control options
[2022-05-29] MEDS: Oxytocin 30 units/NS 500 ml 30 UNITS/500 ML IV.SOLN 167 UNITS IV (13:24)
[2022-05-29] MEDS: Ketorolac 30 MG/ML Syringe IV ×2 (13:25→19:29)
[2022-05-29] MEDS: Methylergonovine 0.2 MG/ML Ampul IM (14:16)
[2022-05-29 16:03] LABS: Pathology Specimen OB SEE PATHOLOGY REPORT
[2022-05-29] MEDS: Lactated Ringers 1,000 ML 100 ML IV (17:31)
[2022-05-30] VITALS (10 sets, daily range): BP systolic 97–138; BP diastolic 39–73; PULSE 70–103; RESP 16–18; TEMP 36.1–36.7; O2SAT 95–99
[2022-05-30] MEDS: Acetaminophen 500 MG Tablet 1000 MG PO ×3 (00:40→13:01)
[2022-05-30] MEDS: Enoxaparin 40 MG/0.4 ML Syringe SC (00:45)
[2022-05-30] MEDS: Ketorolac 30 MG/ML Syringe IV ×2 (01:46→08:34)
[2022-05-30 05:52] LABS: Hematocrit 30.7 % (37-47); Hemoglobin 10.2 g/dL (12.0-15.0); Mean Corp Hgb Conc 33.2 g/dL (32-36); Mean Corpuscular Hgb 31.6 pg (27.0-32.0); Mean Platelet Vol. 9.5 fl (6.2-12.0); Platelet Count 252 K/mm3 (150-450); RBC Distribution Width SD 44.8 fl (35.1-43.9); Red Blood Count 3.23 M/mm3 (4.2-5.4); White Blood Count 11.2 K/mm3 (4.4-11.0)
[2022-05-30] MEDS: 0.9% Saline Lock 10 ML Syringe IV (08:34)
--- NOTE | 2022-05-30 10:36 | PCM.PN.OB ---
Subjective Subjective Doing well per patient and nursing staff. Ambulating and taking PO without difficulty. Voiding and passing flatus. Pain controlled. , services for assistance. Denies headache, visual changes, chest pain, shortness of breath, leg pain or increased bleeding. Lochia normal. Objective Data Objective Data Vital Signs: Vital Signs Temp Pulse Resp BP Pulse Ox O2 Del Method O2 Flow Rate 98.0 F 79 16 104/39 L 97 Room Air 95 05/30/22 08:30 05/30/22 08:30 05/30/22 08:30 05/30/22 08:30 05/30/22 08:30 05/30/22 08:30 05/29/22 16:25 Oxygen Flow Rate (L/min) 95 Oxygen Delivery Method Room Air Weight: 251 lb 3.2 oz Body Mass Index (BMI) 40.5 Intake & Output: Intake and Output for Last 24 Hours 05/28/22 05/29/22 05/30/22 23:59 23:59 23:59 Intake Total 1717.5 / 1717.5 865 / 865 Output Total 550 / 550 1650 / 1650 Balance 1167.5 / 1167.5 -785 / -785 Lab / Micro Data Result Diagrams: 05/30/22 05:44 Labs: Laboratory Results - last 24 hr 05/29/22 10:00: Blood Type A POSITIVE, Antibody Screen NEGATIVE 05/30/22 05:44: WBC 11.2 H, RBC 3.23 L, Hgb 10.2 L, Hct 30.7 L, MCV 95.0, MCH 31.6, MCHC 33.2, RDW Std Deviation 44.8 H, RDW Coeff of Javier 13.0, Plt Count 252, MPV 9.5 ROS Constitutional Constitutional: Reports systems reviewed and no addt'l complaints, except as documented; Denies headache(s) Eyes Eyes: Denies acute decrease in peripheral vision, blurry vision or change in vision ENT HEENT: Reports systems reviewed and no addt'l complaints, except as documented Cardiovascular Cardiovascular: Denies chest pain or dizziness Respiratory/Chest Respiratory/Chest: Denies cough, dyspnea, dyspnea on exertion, shortness of breath at rest or shortness of breath with exertion Gastrointestinal Gastrointestinal: Denies abdominal pain, diarrhea, nausea or vomiting Genitourinary Genitourinary: Denies abdominal discomfort Musculoskeletal Musculoskeletal: Denies limited range of motion Integumentary Integumentary: Reports systems reviewed and no addt'l complaints, except as documented Neurologic Neurologic: Reports systems reviewed and no addt'l complaints, except as documented Psychiatric Psychiatric: Reports systems reviewed and no addt'l complaints, except as documented Endocrine Endocrinology: Reports systems reviewed and no addt'l complaints, except as documented Hematologic/Lymphatic Hematologic/Lymphatic: Reports systems reviewed and no addt'l complaints, except as documented Allergic/Immunologic Allergic/Immunologic: Reports systems reviewed and no addt'l complaints, except as documented Physical Exam Const alert and oriented x3 General Appearance: cooperative Orientation / Consciousness: awake, oriented to person, oriented to place and oriented to time Exam Limitations: no limitations HEENT normocephalic Head and Scalp: normal to inspection, normocephalic and atraumatic Face and Sinus: normal facial exam Eyes General Eye: normal appearance of both eyes Neck full ROM Chest Chest: symmetrical chest wall rise Resp normal respiratory effort and normal air movement Auscultation: clear to auscultation bilaterally Cardio regular rate, regular rhythm, S1 normal heart sound, S2 normal heart sound, no murmurs, no rub, no gallops and no clicks GI normal to inspection, nondistended, normoactive bowel sounds and non-tender GI Narrative: Dressing dry and intact appearance of the vagina normal Bladder / Kidney Exam: no CVA tenderness Back/Spine normal ROM Extremity normal to inspection and full ROM Skin no rashes or lesions noted Neuro oriented x3, CN's II-XII intact bilaterally and moves all extremities Sensorium / Orientation: awake, alert and oriented to person Motor Exam: clonus absent Deep Tendon Reflexes: Rt Patellar (L4): 2+ and Lt Patellar (L4): 2+ Assessment & Plan (1) Delivery by section: PLAN: Plan 1) Routine PP care 2) Pain management 3) I&Os 4) Vitals stable 5) Planning D/C home tomorrow
--- NOTE | 2022-05-30 11:12 | PCM.DC.SUM ---
Providers Date of Admission: 05/29/22 Reason For Visit: REPEAT C SECTION Diagnosis Discharge Diagnosis (1) Delivery by section: Status: Acute Plan 1) Routine PP care 2) Pain management 3) I&Os 4) Vitals stable 5) Planning D/C home tomorrow Medications at Discharge Home Medications Prenatabs FA 05/29/22 ibuprofen 600 mg tablet 600 mg PO Q6H #30 tabs 05/30/22 oxycodone 5 mg tablet 5 mg PO Q4H PRN PRN Pain Score 4-10 7 days #10 tabs 05/30/22 sennosides 8.6 mg-docusate sodium 50 mg tablet (Stool Softener-Stimulant Laxative) 1 - 2 tab PO DAILY #0 tabs 05/30/22 Hospital Course Summary of Care Provided Hospital Course: Presented on 05/29/22 for repeat LTCS. Postoperative course uncomplicated. Discharge home on PPD #1 Weight / BMI Weight Weight: 251 lb 3.2 oz Body Mass Index (BMI) 40.5 ABG / Lab / Microbiology Data Result Diagrams: 05/30/22 05:44 Laboratory: Laboratory Results - last 24 hr 05/29/22 10:00: Blood Type A POSITIVE, Antibody Screen NEGATIVE 05/30/22 05:44: WBC 11.2 H, RBC 3.23 L, Hgb 10.2 L, Hct 30.7 L, MCV 95.0, MCH 31.6, MCHC 33.2, RDW Std Deviation 44.8 H, RDW Coeff of Javier 13.0, Plt Count 252, MPV 9.5 Meaningful Use Info Meaningful Use Diagnoses (Choose all that apply): None applicable Discharge Plan Admission Admit Date/Time: 05/29/22 09:30 Primary Reason for Your Visit: Repeat section Attending Provider: Sonya Baldwin Discharge Orders/Prescriptions Prescriptions: New ibuprofen 600 mg Tablet 600 mg PO Q6H Qty: 30 0RF oxycodone 5 mg Tablet 5 mg PO Q4H PRN PRN (Reason: Pain Score 4-10) 7 Days Qty: 10 0RF sennosides-docusate sodium [Stool Softener-Stimulant Laxat] 8.6-50 mg Tablet 1 - 2 tab PO DAILY Qty: 0 0RF Continued Prenatabs FA Discontinued aspirin 81 mg Tablet PO Referrals / Follow Up: Sonya Baldwin MD [Med Staff - Active Staff] - (1-2 weeks for incision check and 6 weeks for PP visit) Disposition Disposition (needs filled in before D/C Order can be placed): Home, Self Care
[2022-05-30] MEDS: Senna/Docusate Sodium 1 Tablet PO (11:21)
--- NOTE | 2022-05-30 11:22 | NURSING ---
Previous nicotine patch removed and extra medication wiped from arm.
--- NOTE | 2022-05-30 13:46 | CM.ED ---
Addendum entered by Mackenzie Baker 05/30/22 14:09: Apgars of nb 03/31 Mackenzie Baker [employer]LL[employer]ITCHER JULITA Original Note: SW note Referral Source: RN Reason: PPD and new FOB SW spoke to patient's nurse, Sabina. She reports no concerns regarding patient and FOB. MOB gave permission for this commercial loan underwriter to speak to her in the presence of the FOB. Mom: Anusha Barraza PNC: Dr. Logan [facility] Control: patient had a tubal ligations Baby: Golden Carpenter : 05/[birth year] Weight: 7# 12 ounces. Housing Development Specialist: Jose Antonio Breast feeding however, patient said that if patient is not eating she will switch to formula. Her concern is baby eating. MOB had planned to breast feeding but stated that she realizes she may have to do formula. MOB's other children: Elaine age 11 and Rafita age 4 currently with MOB's parents. Housing: LAURIE resides in a house with her and her children. MOB report that her housing is adequate. Transportation: MOB reports access and ability to drive. Supplies: LAURIE reports that she has a carseat, bassinet,, pack, clothes and diapers. Supports: LAURIE reports that her dad and mom took off time for work to assist with the nb and the FOB is disabled so he will be able to help alot. Education: LAURIE dropped out of school in the 12th grade however she obtained her GED. LAURIE started nursing school but did not complete it. 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 LAURIE completed phlebotomy school. MOB reports no learning issues. 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 She is planning to take 8 weeks off work. After she returns to work the FOB will watch the nb. LAURIE' 4 year old goes to daycare. LAURIE reports that she has caresource for herself and plans to enroll the nb on caresource. LAURIE said that she does not have referral and was open to this commercial loan underwriter to make referral for WIC. LAURIE does not have [facility] currently and was open to referral to [facility]. LAURIE said tht she goes to counseling center for therapy occasionally. No legal or CSB issues. FOB: Joao Carpenter Time Together: 1 year Involved at : Yes Employment: FOB is disabled and he is available to help with the nb. This is VICTORIANO's first child. FOB denied any MH and Domestic Violence issues. FOB said that he has an alcohol history but has been sober for 3 years. Maternal MH History: LAURIE reports that [facility] and [facility]. MOB said that she does not take medication for her depression and anxiety as she thinks it makes it worse. LAURIE said that going to counseling helps her and makes the anxiety/depression more manageable when she is off medication. LAURIE reports that she has no scheduled appointment with her therapist but call and schedules an appointment or does telehealth. MOB denied any or past SI/HI or psychiatric hospitalization. MOB's PHQ2 score was 0 and patient denied DV/SI and HI. LAURIE reports her MD felt that she had PPD with her oldest child, but she was 15 at the time and doing on line schoolwork and trying to breast feed. LAURIE said that with her 2nd child she was given medication for PPD but felt like the medication made it her feelings worse and once she stopped taking the medication she felt alot better. MOB and FOB educated on PPD, Shaken Baby and Safe Sleeping. MOB denied any alcohol and drug(including THC) use. MOB reprots that she has cut down on her smoking. MOB was educated that if she smokes to smoke outside and have responsible adult watch the nb and MOB verbalized understanding. DEION provided MOB with PPD an PPA handouts and support information. DEION made on line referral to [facility] and WIC for MOB. Plan: Home at discharge Mackenzie CANCINO
[2022-05-30] MEDS: Ibuprofen 600 MG Tablet PO (14:43)
--- NOTE | 2022-05-30 16:10 | NURSING ---
Pt instructed to take nicotine patch off at 24 hours, pt aware that she is not to smoke with nicotine patch in place.
== END 2022-05-30 16:10 | disposition home or self-care (01) | DRG 539 ==
PROVIDERS: Admitting Provider Obstetrics & Gynecology; Visit Provider Obstetrics & Gynecology
PROC: 10D00Z1 Extraction of Products of Conception, Low, Open Approach (ICD-10-PCS; CPT 59514; principal; 2022-05-29 11:45)
DX: O34.211 Maternal care for low transverse scar from previous cesarean delivery (principal); F17.210 Nicotine dependence, cigarettes, uncomplicated; O99.214 Obesity complicating childbirth; O99.334 Smoking (tobacco) complicating childbirth; Z30.2 Encounter for sterilization; Z37.0 Single live birth; Z3A.37 37 weeks gestation of pregnancy
CPT/HCPCS: 59050; 85025; 85027; 86850; 86900; 86901; 87635; 88302; 99218; 99406; J7120; A4216; G0378; J2405; U0003; U0005

== ENCOUNTER → 2024-06-30 | Outpatient (CLI) | payer OTHER, SELFPAY ==
[2024-06-30 12:11] LABS: Hemoglobin A1c 5.2 % (3.8-5.6)
== END | disposition home or self-care (01) ==
LOC: LAB 11:39
PROVIDERS: PCP Family Medicine; Visit Provider Nurse Practitioner Women's Health
DX: Z13.1 Encounter for screening for diabetes mellitus (principal)
CPT/HCPCS: 83036